=== PATIENT | female | born 1965 | race Caucasian/White ===

== ENCOUNTER → 2017-12-17 09:44 | Outpatient (CLI) | payer OTHER, SELFPAY ==
[2017-12-17 10:25] LABS: AST(SGOT) 22 U/L (15-37); Alanine Aminotransfer ALT/SGPT 41 U/L (13-56); Albumin, Serum 3.5 g/dL (3.2-5.0); Alkaline Phosphatase 66 U/L (45-117); Anion Gap 9 (5-15); BUN 13 mg/dL (7-18); BUN/Creat Ratio 18.5 RATIO (10-20); Calcium,Total 9.9 mg/dL (8.5-10.1); Chloride 101 mmol/L (98-107); Cholesterol 173 mg/dL (200); EST Glomerular Filtration Rate 94 mL/min (>60); Est Glom Filt Rate - Afr Amer 113 mL/min (>60); Globulin 3.6 g/dL (2.2-4.2); Glucose 192 mg/dL (74-106); High Density Lipoprotein 47 mg/dL; Potassium 4.2 mmol/L (3.5-5.1); Protein, Total 7.1 g/dL (6.4-8.2); Sodium Level 138 mmol/L (136-145); Triglycerides 362 mg/dL; Very Low Density Lipoprotein 72 mg/dL (5-40)
[2017-12-17 10:31] LABS: Microalbumin,Random Urine 31.7 mg/L (NO RANGE EST.); Microalbumin:Creatinine Ratio 17.8 mg/g CRE (<30 mg/g CRE)
[2017-12-17 11:14] LABS: Hemoglobin A1c 7.9 % (4.2-6.3)
== END ==
PROVIDERS: Family Provider Family Medicine; PCP Family Medicine; Visit Provider Family Medicine
DX: E11.9 Type 2 diabetes mellitus without complications (principal); I10 Essential (primary) hypertension
CPT/HCPCS: 36415; 80053; 80061; 82043; 82570; 83036

== ENCOUNTER → 2018-02-03 16:51 | Outpatient (CLI) | payer OTHER, SELFPAY ==
--- NOTE | 2018-02-03 17:08 | RAD_ITS ---
STUDY: X-RAY - LUMBAR SPINE REASON FOR EXAM: Female, 52 years old. Lower back pain. TECHNIQUE: 3 view(s) of the lumbar spine were obtained. COMPARISON: June 18, 2013 FINDINGS: Normal lumbar lordosis. There is no substantial scoliosis. There is a normal alignment of the vertebrae. There is multilevel endplate spondylosis of the lumbar vertebrae. There is multi-level degenerative disc disease with multi-level disc space narrowing. There is a stable grade 1 anterior spondylolisthesis of L4 on L5. The soft tissue structures are unremarkable. RAD/Lumbar Spine 2 or 3 Views IMPRESSION: Degenerative changes of the spine, as detailed above. Electronically Signed: Mariah Donohue MD at 8:37 EDT Tel , Service support ,
== END ==
PROVIDERS: Family Provider Family Medicine; PCP Family Medicine; Visit Provider Anesthesiology Pain Medicine
DX: M54.9 Dorsalgia, unspecified (principal)
CPT/HCPCS: 72100

== ENCOUNTER → 2018-02-12 10:16 | Outpatient (CLI) | payer OTHER, SELFPAY ==
--- NOTE | 2018-02-12 10:28 | MRI_ITS ---
STUDY: MRI LUMBAR SPINE WITHOUT CONTRAST REASON FOR EXAM: Female, 52 years old. Low back pain, left leg pain and trouble walking x16 weeks. TECHNIQUE: Standardized fat and water weighted pulse sequences were obtained in the sagittal and axial planes. COMPARISON: None FINDINGS: T11-T12: (Sagittal only). Normal endplates. Normal disc height, hydration and morphology. Normal central canal and bilateral intervertebral neural foramina. T12-L1: (Sagittal only). Normal endplates. Normal disc height, hydration and morphology. Normal central canal and bilateral intervertebral neural foramina. Normal lumbar lordosis. There is no substantial scoliosis. Normal conus medullaris that terminates at the mid T12 vertebral body level. L1-2: Normal endplates. Normal disc height, hydration and morphology. Normal bilateral facet joints. Normal central canal and bilateral lateral recesses. Normal bilateral intervertebral neural foramina. L2-3: Normal endplates. Normal disc height, hydration and morphology. Normal bilateral facet joints. Normal central canal and bilateral lateral recesses. Normal bilateral intervertebral neural foramina. L3-4: Normal endplates. Minimal disc space height narrowing with minimal loss of disc hydration. Normal disc morphology. Normal central canal and bilateral lateral recesses. Normal facet joints. Normal bilateral intervertebral neural foramina. L4-5: Normal endplates. Mild disc space height narrowing. Minimal degenerative anterolisthesis of L4 and L5. Normal central canal. Moderate left degenerative facet arthropathy and mild right degenerative facet arthropathy. Minimal fluid distention of the left facet joint. Normal bilateral lateral recesses. Normal bilateral intervertebral neural foramina. L5-S1: Normal endplates. Normal disc height, hydration and morphology. Normal bilateral facet joints. Normal central canal and bilateral lateral recesses. Normal bilateral intervertebral neural foramina. Normal visualized sacral ala. Normal visualized paraspinous soft tissue structures. MRI/Spine Lumbar (Routine) IMPRESSION: 1. No MRI evidence of lumbar extruded disc fragment or spinal stenosis. 2. Mild L4-L5 disc space height narrowing with minimal degenerative anterolisthesis of L4 on L5, moderate left degenerative facet arthropathy with minimal fluid distention of is facet joint and mild right degenerative facet arthropathy. 3. Minimal L3-L4 disc space height narrowing. Electronically Signed: Hair Esparza MD at 15:34 EDT , Service support ,
== END ==
PROVIDERS: Family Provider Family Medicine; PCP Family Medicine; Visit Provider Anesthesiology Pain Medicine
DX: M54.9 Dorsalgia, unspecified (principal); M79.606 Pain in leg, unspecified
CPT/HCPCS: 72148

== ENCOUNTER → 2018-03-25 08:49 | Outpatient (CLI) | payer OTHER, SELFPAY ==
[2018-03-25 09:33] LABS: Thyroid Stim Hormone (TSH) 4.99 uIU/mL (0.358-3.74)
[2018-03-25 09:39] LABS: Hemoglobin A1c 6.9 % (4.2-6.3)
== END ==
PROVIDERS: Family Provider Family Medicine; PCP Family Medicine; Visit Provider Physician Assistant
DX: E11.9 Type 2 diabetes mellitus without complications (principal); E03.9 Hypothyroidism, unspecified
CPT/HCPCS: 83036; 84443

== ENCOUNTER → 2018-09-10 16:37 | Outpatient (CLI) | payer OTHER, SELFPAY ==
[2018-09-09 17:37] LABS: BUN 15 mg/dL (7-18); Creatinine, Serum 0.85 mg/dL (0.55-1.02); EST Glomerular Filtration Rate 75 mL/min (>60); Est Glom Filt Rate - Afr Amer 91 mL/min (>60)
--- NOTE | 2018-09-10 16:46 | MRI_ITS ---
STUDY: MRI BRAIN WITH AND WITHOUT CONTRAST REASON FOR EXAM: Female, 52 years old. Dermoid cyst. TECHNIQUE: Standardized multiplanar fat and water weighted pulse sequences were obtained. Gadavist 10 IV was administered for the contrast portion of the examination. COMPARISON: 02/08/2017. CT 06/05/2016. FINDINGS: There is a 3.8 x 1.7 x 2.3 cm lesion in the left paramedian posterior fossa with uniform fat signal intensity. The lesion is somewhat lobulated. Primary differential considerations include quadrigeminal cistern lipoma (congenital etiology) versus intracranial dermoid. The lesion appears minimally increased compared to 2017. Normal size of the ventricles and extra-axial spaces for the patient's age. Normal white matter tracts of the supratentorial brain. Normal bilateral basal ganglia. Normal thalami. There is no extra-axial fluid accumulation. Normal flow voids within the major intracranial circulation suggesting patency by spin echo criteria. There is no enhancing intra-axial or extra-axial abnormality. Normal sella turcica, pituitary gland, infundibular stalk, optic chiasm and hypothalamus. Normal midbrain, aparna and medulla. Normal cerebellum. Normal bilateral temporal bones. Normal bilateral internal auditory canals. No demonstrated orbital abnormality, within the constraints of a routine brain study. There is trace mucosal thickening in the left maxillary sinus. Normal calvarium and skull base. Normal visualized soft tissue structures. Normal visualized upper cervical spine. MRI/Brain W/WO Contrast IMPRESSION: 1. 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 This lesion appears minimally increased compared to 2017. Electronically Signed: Tammy Silva MD at 21:42 EST Tel , Service support ,
== END ==
PROVIDERS: Family Provider Family Medicine; PCP Family Medicine
DX: D33.2 Benign neoplasm of brain, unspecified (principal)
CPT/HCPCS: 36415; 70553; 82565; 84520; A9585

== ENCOUNTER → 2018-09-15 09:34 | Outpatient (CLI) | payer OTHER, SELFPAY ==
[2018-09-15 10:09] LABS: Hemoglobin A1c 8.5 % (4.2-6.3)
[2018-09-15 10:32] LABS: Thyroid Stim Hormone (TSH) 0.42 uIU/mL (0.358-3.74)
== END ==
PROVIDERS: Family Provider Family Medicine; PCP Family Medicine; Visit Provider Family Medicine
DX: E03.9 Hypothyroidism, unspecified (principal); E11.9 Type 2 diabetes mellitus without complications
CPT/HCPCS: 36415; 83036; 84443

== ENCOUNTER → 2019-03-09 | Outpatient (CLI) | payer OTHER, SELFPAY ==
[2019-03-09 15:39] VITALS: BMI 38.2
== END | disposition home or self-care (01) ==
LOC: LABSPEC 16:47
PROVIDERS: Family Provider Family Medicine; PCP Family Medicine; Referring Provider Nurse Practitioner Women's Health; Visit Provider Nurse Practitioner Women's Health
DX: N89.8 Other specified noninflammatory disorders of vagina (principal)
CPT/HCPCS: 87070; 87205

== ENCOUNTER → 2019-04-22 17:23 | Outpatient (CLI) | payer OTHER, SELFPAY ==
[2019-03-09 15:39] VITALS: BMI 38.2
--- NOTE | 2019-04-22 17:30 | RAD_ITS ---
STUDY: X-RAY - RIGHT KNEE REASON FOR EXAM: Female, 53 years old. Pain TECHNIQUE: 4 view(s) of the knee. COMPARISON: None. FINDINGS: There is no evidence of fracture or dislocation. Moderate osteoarthritic degenerative changes are present in the medial compartment and mild osteoarthritic degenerative changes are present in the lateral and patellofemoral compartments. There are no radiodense foreign bodies. RAD/Knee 4 or More Views IMPRESSION: No fracture or dislocation. Tricompartmental degenerative changes, greatest in the medial compartment. Electronically Signed: Armando Gleason, at 21:44 EDT Tel , Service support ,
--- NOTE | 2019-04-22 17:50 | RAD_ITS ---
STUDY: X-RAY - LEFT KNEE REASON FOR EXAM: Female, 53 years old. Pain TECHNIQUE: 4 view(s) of the knee. COMPARISON: None. FINDINGS: There is no evidence of fracture or dislocation. Mild tricompartmental osteoarthritic degenerative changes are present, greatest in the medial compartment. There are no radiodense foreign bodies. RAD/Knee 4 or More Views IMPRESSION: No fracture or dislocation. Mild tricompartmental osteoarthritic degenerative changes, greatest in the medial compartment. Electronically Signed: Armando Gleason, at 21:46 EDT Tel , Service support ,
== END ==
PROVIDERS: Family Provider Family Medicine; PCP Family Medicine; Referring Provider Family Medicine; Visit Provider Family Medicine
DX: M25.561 Pain in right knee (principal); M25.562 Pain in left knee
CPT/HCPCS: 73564

== ENCOUNTER 2019-06-30 16:30 | Outpatient (RCR) | payer OTHER, SELFPAY ==
[2019-05-19 10:17] VITALS: BMI 38.2
--- NOTE | 2019-05-27 16:54 | HP.PTEVAL_ITS ---
Patient's Visit Information CHARLENE GARZA is a 53 year old F referred to Physical Therapy by Jennifer Maradiaga DO with a diagnosis of R knee pain, medial OA. Date of Evaluation: 05/27/19 Physical Therapist: Shyam Oakes, DPT, OCS, CSCS - Visit Plan Frequency: 1x/Week Duration: 4-6 Weeks Plan: weekly to every other week x 2-4 visits to teach adn progress LE ROM, stretching and strengthening ex to manage OA. Next: check stretches(piri, ITB, quad adn ROM) adn teach SLR, bridge, clamshell, heel raise for HEP adn d/c or f/u one more time. - Subjective Findings: R knee hurting for a year or so but worsening possibly stepping up a stair. Pain is front of R knee. Intermittent most of time. Worse with getting started after sitting. Comfortable at rest. Walking longer distances is painful. Sleeps well. 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 Stiff. Basic aDLs can be worse if she uses it alot or gets down on knees. Enjoys gardening and was limited this year especiallya s summer went on. Worse later in the year. Regular doctor sent x ray and to [facility] - Pain R knee pain Pain Intensity (Out of 10): 2 Pain Intensity Range: 0, 4 - Objective Walks with slight R antalgia, steps reciprocal with one rail but obviously weaker on R eccentrically. Tender to touch at R medial joint line minimally. Hip AROM WFL, piriformis tight , strength is 3+ abd and ext adn 4- flexion and adduction without pain. Knee AROM 0-105 B, no pain throughout movment either leg. tightness present in quad and ITB B. ankle AROM WFL but 0 Df B and tight in gastroc. Strength knee ext 4- B and flexion 4- B, has some pain R HSC and ext in medial knee. Sensation WNL to gross light touch in B LE. - anterior drawer, - scour, - bounce home - Goals Goal 1:: Patient feel pain in medial R knee is 75% improved to 1/10 at most adn manageable Goal Time Frame: 4-6 Weeks Goal 2:: Pt I in appropriate HEP to help manage symptoms Goal Time Frame: 4-6 Weeks - Rehabilitation Potential Physical Therapy Diagnosis: R medial OA. Rehabilitation Potential: Fair - Anticipated Interventions Patient/Client Instruction: Educate patient on: Condition, Plan of Care For the Purpose of:: To decrease pain, To increase ROM, To improve nutrient d elivery to tissue, To increase tolerance to activity/condition/position, To improve ability of physical actions for home/community/work/leisure Therapeutic Exercise to Include: Strength training, Flexibilty training, Passive ROM, Active ROM Comment: activitiy mdoification For the Purpose of:: To decrease pain, To increase ROM, To improve muscle performance and motor function, To increase tolerance to activity/condition/position, To improve ability of physical actions for home/community/work/leisure, To improve gait and locomotor functions Thank you for the opportunity to evaluate your patient. For Medicare and Medicare HMO plans, please review the plan of care and approve it. It will need to be FAXED BACK to us at [phone] for Medicare purposes. For Medicare only, by signing this I certify the plan of care. Please let me know if there are questions or concerns regarding this plan of care. Physician Signature: Date:
--- NOTE | 2019-06-30 17:09 | HP.PTREVAL ---
Jennifer Maradiaga, DO, It has been my pleasure to treat CHARLENE GARZA over the last 3 visits for R knee pain, medial OA. Please see the progress note below for an update on the physical therapy plan of care! Subjective: Not bad lately. Slight pain lately but nothing like it was 3/10 much of time. Worse after Thanksgiving meal. Exercises are not bad and getting them in 3x/week. No f/u needed with doctor but got brace adn will use it and call back in 6 weeks. Doing 10reps of SLR 3x/day and stretches every toher day. Objective/Function: Full aROM B knees without pain today, not limping. Strength is 4/5 without pain in ext or flexion. Brace fitting well and helping today with pain and ambulationa t setting 0/0 Plan Plan: f/u one month to progress to dips, squats, RDL and d/c. Pt may cancel if doing great. Goals Goal 1:: Patient feel pain in medial R knee is 75% improved to 1/10 at most adn manageable Goal Time Frame: 4-6 Weeks Goal Progress: Goal Met Goal 2:: Pt I in appropriate HEP to help manage symptoms Goal Time Frame: 4-6 Weeks Goal Progress: Goal Met Anticipated Interventions Patient/Client Instruction: Educate patient on: Condition, Plan of Care For the Purpose of:: To decrease pain, To increase ROM, To improve nutrient delivery to tissue, To increase tolerance to activity/condition/position, To improve ability of physical actions for home/community/work/leisure Therapeutic Exercise to Include: Strength training, Flexibilty training, Passive ROM, Active ROM Comment: activitiy mdoification For the Purpose of:: To decrease pain, To increase ROM, To improve muscle performance and motor function, To increase tolerance to activity/condition/position, To improve ability of physical actions for home/community/work/leisure, To improve gait and locomotor functions Please do not hesitate to contact me at [phone] by phone or if you have questions or concerns regarding this new plan of care! Sincerely, Shyam Oakes, DPT, OCS, CSCS
--- NOTE | 2019-09-04 09:19 | HP.PTDCNRP_ITS ---
HP - Discharge Summary (1) - Patient Information CHARLENE GARZA was seen in my office for initial evaluation on 05/27/19. The following Plan of Care was established for this patient: Initial Frequency: 1x/Week Initial Duration: 4-6 Weeks - Anticipated Interventions Patient/Client Instruction: Educate patient on: Condition, Plan of Care For the Purpose of:: To decrease pain, To increase ROM, To improve nutrient del xochitl to tissue, To increase tolerance to activity/condition/position, To improve ability of physical actions for home/community/work/leisure Therapeutic Exercise to Include: Strength training, Flexibilty training, Passive ROM, Active ROM For the Purpose of:: To decrease pain, To increase ROM, To improve muscle performance and motor function, To increase tolerance to activity/condition/position, To improve ability of physical actions for home/community/work/leisure, To improve gait and locomotor functions This patient was last seen in our office 06/30/19. Pertinent comments regarding their Physical therapy will appear below: Pt seen 3 visits of POC adn was 75% better. She was to f/u in one month but neglected to schedule or attend. At this point, it has been nearly two months and I will discontinue due to nonattendance. At this point I will be discontinuing this patient from physical therapy. I would be happy to see this patient again in the future if found appropriate by the physician. Thank you! Shyam Oakes, DPT, OCS, CSCS
== END 2019-06-30 19:00 | disposition home or self-care (01) ==
LOC: PT 16:30
PROVIDERS: Family Provider Family Medicine; PCP Family Medicine; Referring Provider Orthopaedic Surgery; Visit Provider Orthopaedic Surgery
DX: M17.11 Unilateral primary osteoarthritis, right knee (principal)
CPT/HCPCS: 97110; 97162; 97530

== ENCOUNTER → 2019-12-12 07:10 | Outpatient (CLI) | payer OTHER, SELFPAY ==
[2019-05-19 10:17] VITALS: BMI 38.2
[2019-12-12 07:44] LABS: ALB/GLOB Ratio 1.1 RATIO (0.9-2.4); AST(SGOT) 17 U/L (15-37); Alanine Aminotransfer ALT/SGPT 34 U/L (13-56); Albumin, Serum 3.9 g/dL (3.2-5.0); Alkaline Phosphatase 45 U/L (45-117); Anion Gap 6 (5-15); BUN 13 mg/dL (7-18); BUN/Creat Ratio 15.2 RATIO (10-20); Calcium,Total 9.8 mg/dL (8.5-10.1); Chloride 100 mmol/L (98-107); Cholesterol 180 mg/dL (200); Creatinine, Serum 0.86 mg/dL (0.55-1.02); EST Glomerular Filtration Rate 74 mL/min (>60); Est Glom Filt Rate - Afr Amer 90 mL/min (>60); Globulin 3.5 g/dL (2.2-4.2); Glucose 180 mg/dL (74-106); High Density Lipoprotein 50 mg/dL; Protein, Total 7.4 g/dL (6.4-8.2); Sodium Level 136 mmol/L (136-145); Triglycerides 228 mg/dL; Very Low Density Lipoprotein 46 mg/dL (5-40)
[2019-12-12 07:54] LABS: Microalbumin,Random Urine 32.7 mg/L (NO RANGE EST.); Microalbumin:Creatinine Ratio 18.1 mg/g CRE (<30 mg/g CRE)
== END ==
PROVIDERS: PCP Family Medicine; Visit Provider Family Medicine
DX: E11.9 Type 2 diabetes mellitus without complications (principal); E03.9 Hypothyroidism, unspecified
CPT/HCPCS: 36415; 80053; 80061; 82043; 82570; 83036

== ENCOUNTER → 2020-03-11 | Outpatient (CLI) | payer OTHER, SELFPAY ==
[2020-03-11 15:28] VITALS: BMI 38.2
== END | disposition home or self-care (01) ==
PROVIDERS: PCP Family Medicine; Referring Provider Nurse Practitioner Women's Health; Visit Provider Nurse Practitioner Women's Health
DX: N94.9 Unspecified condition associated with female genital organs and menstrual cycle (principal); R30.0 Dysuria
CPT/HCPCS: 87070; 87086; 87088; 87205

== ENCOUNTER → 2020-04-16 09:05 | Outpatient (CLI) | payer OTHER, SELFPAY ==
[2020-03-11 15:28] VITALS: BMI 38.2
--- NOTE | 2020-04-16 09:06 | BI_ITS ---
MAMMOGRAPHY - BILATERAL SCREENING REASON FOR EXAM: Female, 54 years old. Routine annual screening examination. PERTINENT HISTORY: Non-contributory. TECHNIQUE: Digital bilateral breast levar (3D mammographic acquisition) in the CC and MLO projections. 2-D mediolateral oblique (MLO) and craniocaudad (CC) views of both breasts were obtained. CAD: Full Field Digital Mammography with Computer Added Detection was performed. COMPARISON: Comparison is made with prior study dated 03/19/2016. FINDINGS: Breast Composition: The breasts are almost entirely fatty. There are no dominant masses or suspicious calcifications. Stable small benign-appearing bilateral axillary lymph nodes. No other significant abnormalities are identified. There has been no significant change since the prior study. BI/SCREEN MAMM (CAD) W/LEVAR BILAT IMPRESSION: Stable bilateral screening mammogram. Yearly follow-up mammogram recommended. (A) ASSESSMENT CATEGORY: BIRADS Category 2: Benign. A letter regarding these results will be sent to the patient by the facility within 30 days. Approximately 10% of breast cancers are not detected by mammography. A normal mammogram should not delay biopsy of a clinically suspicious abnormality. [id number] Electronically Signed: Frederick Sanford, at 8:44 EDT , Service support ,
== END ==
PROVIDERS: PCP Family Medicine; Referring Provider Family Medicine; Visit Provider Family Medicine
DX: Z12.31 Encounter for screening mammogram for malignant neoplasm of breast (principal)
CPT/HCPCS: 77063; 77067

== ENCOUNTER → 2020-07-26 09:32 | Outpatient (CLI) | payer OTHER, SELFPAY ==
[2020-03-11 15:28] VITALS: BMI 38.2
[2020-07-26 09:54] LABS: Hemoglobin A1c 6.4 % (3.8-5.6)
[2020-07-26 10:11] LABS: Anion Gap 5 (5-15); BUN 11 mg/dL (7-18); Calcium,Total 10.1 mg/dL (8.5-10.1); Chloride 104 mmol/L (98-107); Creatinine, Serum 0.61 mg/dL (0.55-1.02); EST Glomerular Filtration Rate 109 mL/min (>60); Est Glom Filt Rate - Afr Amer 132 mL/min (>60); Glucose 172 mg/dL (74-106); Sodium Level 137 mmol/L (136-145); Thyroid Stim Hormone (TSH) 0.07 uIU/mL (0.358-3.74)
== END ==
PROVIDERS: PCP Family Medicine; Visit Provider Family Medicine
DX: E11.9 Type 2 diabetes mellitus without complications (principal); E03.9 Hypothyroidism, unspecified
CPT/HCPCS: 36415; 80048; 83036; 84443

== ENCOUNTER → 2021-03-17 | Outpatient (CLI) | payer OTHER, SELFPAY ==
[2021-03-17 18:01] LABS: Mucous, Urine 0 SEEN /hpf (<or=2+)
[2021-03-17 18:10] LABS: Color, Urine Yellow (Yellow); Glucose, Dipstick Normal (Normal); Ketone-Dipstick Negative (Negative); Leukocyte Esterase-Dipstick 500 /ul (Negative); Nitrite-Dipstick Positive (Negative); Occult Blood-Urine 250 /ul (Negative); Protein-Dipstick 30 mg/dl (Negative); Urine Bilirubin Dipstick Negative (Negative); Urine Clarity Cloudy (Clear); Urine Urobilinogen Normal (Normal)
[2021-03-17 18:22] LABS: Amorphous Sediment 1+ PHOS; Bacteria 1+ /hpf (None Seen); Red Blood Cells-Urine 25-50 SEEN /hpf (0-5); Squamous Epithelial Cells - UA 0-5 SEEN /hpf (5-10); White Blood Cells >100 SEEN /hpf (0-5)
== END | disposition home or self-care (01) ==
PROVIDERS: PCP Family Medicine; Referring Provider Physician Assistant Surgical; Visit Provider Physician Assistant Surgical
DX: N39.0 Urinary tract infection, site not specified (principal)
CPT/HCPCS: 81001; 87077; 87086; 87088; 87186

== ENCOUNTER → 2021-04-30 09:26 | Outpatient (CLI) | payer OTHER, SELFPAY ==
[2021-04-30 10:03] LABS: Hemoglobin A1c 7.2 % (3.8-5.6)
[2021-04-30 10:08] LABS: Thyroid Stim Hormone (TSH) 3.19 uIU/mL (0.358-3.74)
[2021-04-30 10:15] LABS: Microalbumin,Random Urine 9.1 mg/L (NO RANGE EST.); Microalbumin:Creatinine Ratio 6.6 mg/g CRE (<30 mg/g CRE)
== END ==
PROVIDERS: PCP Family Medicine; Visit Provider Family Medicine
DX: D33.2 Benign neoplasm of brain, unspecified (principal); I10 Essential (primary) hypertension; E03.9 Hypothyroidism, unspecified; E11.9 Type 2 diabetes mellitus without complications
CPT/HCPCS: 82043; 82570; 83036; 84443

== ENCOUNTER → 2021-05-30 | Outpatient (CLI) | payer OTHER, SELFPAY ==
[2021-06-02 15:33] LABS: HSV Culture Without Typing Positive (.)
== END | disposition home or self-care (01) ==
PROVIDERS: PCP Family Medicine; Visit Provider Nurse Practitioner Women's Health
DX: N90.89 Other specified noninflammatory disorders of vulva and perineum (principal)
CPT/HCPCS: 87255

== ENCOUNTER 2021-07-17 15:03 | Outpatient (CLI) | payer OTHER, SELFPAY ==
[2021-07-17 15:24] VITALS: BP 126/71; PULSE 98; RESP 16; TEMP 36.8; O2SAT 99; BMI 32.5
[2021-07-17] MEDS: 0.9% Saline Lock 10 ML Syringe IV (15:34)
[2021-07-17 16:05] VITALS: BP 116/69; PULSE 84; RESP 16; TEMP 36.8; O2SAT 100
[2021-07-17 16:56] VITALS: BP 115/65; PULSE 84; RESP 16; TEMP 36.8; O2SAT 100
== END 2021-07-17 17:07 | disposition home or self-care (01) ==
LOC: MS3OUT 15:03 → MS3 15:04
PROVIDERS: PCP Family Medicine; Visit Provider Nurse Practitioner Adult Health
DX: Z23 Encounter for immunization (principal); U07.1 COVID-19
CPT/HCPCS: J7050; M0245; Q0245; A4216

== ENCOUNTER 2021-10-23 10:14 | Outpatient (CLI) | payer OTHER, SELFPAY ==
[2021-10-23 10:24] LABS: Mucous, Urine 0 SEEN /hpf (<or=2+)
[2021-10-23 10:43] LABS: Color, Urine Yellow (Yellow); Glucose, Dipstick Normal (Normal); Ketone-Dipstick Negative (Negative); Leukocyte Esterase-Dipstick 500 /ul (Negative); Nitrite-Dipstick Negative (Negative); Occult Blood-Urine 25 /ul (Negative); Protein-Dipstick 30 mg/dl (Negative); Urine Bilirubin Dipstick Negative (Negative); Urine Clarity Sl. Cloudy (Clear); Urine Urobilinogen Normal (Normal)
[2021-10-23 10:46] LABS: Bacteria 1+ /hpf (None Seen); Red Blood Cells-Urine 0-5 SEEN /hpf (0-5); Squamous Epithelial Cells - UA 0-5 SEEN /hpf (5-10); White Blood Cells 25-50 SEEN /hpf (0-5)
== END 2021-10-23 23:59 | disposition home or self-care (01) ==
LOC: LABSPEC 10:16
PROVIDERS: PCP Family Medicine; Visit Provider Physician Assistant Surgical
DX: R30.9 Painful micturition, unspecified (principal)
CPT/HCPCS: 81001; 87086; 87088; 87186

== ENCOUNTER 2021-10-26 18:33 | Emergency (ER) | payer OTHER, SELFPAY ==
[2021-10-26 18:34] VITALS: BP 139/89; PULSE 105; RESP 18; TEMP 36.4; O2SAT 97; BMI 34.0
[2021-10-26 19:02] LABS: Absolute Lymphocyte Count 3.27 X10^3/uL (0.83-4.51); Absolute Neutrophil Count 3.1 X10^3/uL (2.0-7.7); Basophil# 0.06 X10^3/uL; Basophil% 0.9 % (0-1); Eosinophil# 0.11 X10^3/uL; Eosinophils% 1.6 % (0-5); Hematocrit 34.4 % (37-47); Hemoglobin 11.4 g/dL (12.0-15.0); Lymphocyte # 3.27 X10^3/ul (0.83-4.51); Mean Corp Hgb Conc 33.1 g/dL (32-36); Mean Corpuscular Hgb 28.9 pg (27.0-32.0); Mean Corpuscular Volume 87.1 fL (81-99); Mean Platelet Vol. 10.2 fl (6.2-12.0); Monocyte# 0.25 X10^3/uL; Monocyte% 3.7 % (0-10); NRBC Flagged by Analyzer 0 % (0-5); Neutrophil # 3.08 X10^3/uL (2.7-7.7); Neutrophil % 45.2 % (47-70); POSITIVE MORPHOLOGY YES; Platelet Count 145 K/mm3 (150-450); RBC Distribution Width CV 14.3 % (11.6-14.6); RBC Distribution Width SD 45.1 fl (35.1-43.9); Red Blood Count 3.95 M/mm3 (4.2-5.4); White Blood Count 6.8 K/mm3 (4.4-11.0)
[2021-10-26 19:06] LABS: Mucous, Urine 0 SEEN /hpf (<or=2+); Red Blood Cells-Urine 0 SEEN /hpf (0-5)
[2021-10-26 19:06] LABS: Differential Indicated SCAN CRITERIA MET
[2021-10-26 19:07] LABS: Color, Urine Yellow (Yellow); Glucose, Dipstick 50 mg/dl (Normal); Ketone-Dipstick Negative (Negative); Leukocyte Esterase-Dipstick 25 /ul (Negative); Nitrite-Dipstick Negative (Negative); Occult Blood-Urine Negative /ul (Negative); Protein-Dipstick 30 mg/dl (Negative); Urine Clarity Sl. Cloudy (Clear); Urine Urobilinogen 8 mg/dl (Normal)
[2021-10-26 19:11] LABS: Urine Bilirubin Dipstick 1 mg/dL (Negative)
[2021-10-26 19:15] LABS: Anion Gap 10 (5-15); BUN 27 mg/dL (7-18); BUN/Creat Ratio 16.2 RATIO (10-20); Calcium,Total 10.3 mg/dL (8.5-10.1); Chloride 98 mmol/L (98-107); Creatinine, Serum 1.67 mg/dL (0.55-1.02); EST Glomerular Filtration Rate 34 mL/min (>60); Est Glom Filt Rate - Afr Amer 41 mL/min (>60); Estimated Creatinine Clearance 33.25 ml/min; Glucose 232 mg/dL (74-106); Potassium 3.7 mmol/L (3.5-5.1); Sodium Level 134 mmol/L (136-145)
[2021-10-26 19:15] LABS: Bacteria 1+ /hpf (None Seen); Squamous Epithelial Cells - UA 10-25 SEEN /hpf (5-10); White Blood Cells 0-5 SEEN /hpf (0-5)
[2021-10-26 19:16] LABS: Amorphous Sediment 1+ URATE
[2021-10-26 19:48] LABS: Atypical Lymphocyte 1+ %; Differential Comment SCANNED; Reactive Lymphocyte 1+
[2021-10-26 21:07] VITALS: BP 134/62; PULSE 88; RESP 16; TEMP 36.9; O2SAT 98
--- NOTE | 2021-10-26 22:34 | CT_ITS ---
INDICATION: flank pain EXAMINATION: CT ABDOMEN AND PELVIS WITHOUT CONTRAST - CT Abdomen And Pelvis W/O Contrast Injection TECHNIQUE: Helically acquired images were obtained of the abdomen and pelvis without oral or IV contrast. A radiation dose optimization technique was used for this scan. IV Contrast dosage and agent: None. Oral contrast: None. COMPARISON: None. FINDINGS: LOWER CHEST: Lung bases are clear. No cardiomegaly or pericardial effusion. LIVER: Normal size, contour and density. No focal mass. GALLBLADDER AND BILIARY TREE: No calcified gallstones. No gallbladder distension or wall edema. No intra- or extrahepatic biliary ductal dilation. PANCREAS: No focal cystic or solid mass. SPLEEN: Upper limit normal size, 14 cm diameter. Normal size portal and splenic veins ADRENAL GLANDS: No nodules. KIDNEYS, URETERS and BLADDER: Normal renal size and position. No mass. No hydronephrosis. Bladder is unremarkable. PERITONEUM: No ascites or free air. No other fluid collection. BOWEL: Normal appendix identified. No abnormally distended bowel loops or air fluid levels. No wall thickening or mass. Scattered diverticuli seen in the sigmoid colon. No focal inflammatory changes. LYMPH NODES: No enlarged mesenteric or retroperitoneal lymph nodes. VESSELS: Aorta is non-dilated. Scattered abdominal aortic vascular calcifications including at the origin of the right renal artery. REPRODUCTIVE ORGANS: Uterus is absent. Normal appearance bilateral ovaries with note of a 18 mm hypodensity left ovary. ABDOMINAL WALL: No discrete abdominal or pelvic wall hernia. BONES: No lytic or blastic abnormality. No fracture. L4-5 posterior disc bulge and facet arthropathy appears to result in at least mild central canal narrowing. CT/Abdomen/Pelvis without Cont IMPRESSION: No acute intra-abdominal pathology. No genitourinary stone. Upper limit normal size spleen measuring 14 cm in length. Scattered diverticuli sigmoid colon without diverticulosis. Abdominal aortic atherosclerosis, mild. Degenerative changes lumbar spine as above. Electronically Signed: Jorge Mathias DO at 23:41 EDT ,
[2021-10-26] MEDS: Ondansetron 4 MG/2 ML Vial IV (22:49)
[2021-10-26] MEDS: 0.9% Normal Saline 1,000 ML 999 ML IV (22:49)
[2021-10-26] MEDS: Morphine 4 MG/ML Syringe IV (22:49)
[2021-10-26] MEDS: Ceftriaxone 1 GM/50 ML BAG IV (23:16)
--- NOTE | 2021-10-26 23:18 | ED.VIS.FEGU ---
HPI HPI - Female History of Present Illness Chief Complaint: Flank Pain Narrative Narrative: 56-year-old female diagnosed [facility]. She states that she was placed on Macrobid. The urine culture was done but the sensitivities were not back. She is placed on Macrobid initially. She states she is feeling worse. She has the chills and she is nauseous but she has not vomited. She does not have any GI complaints. She states that today she was walking and felt like she had a hot flash. She has not had a fever. She does have a mild headache. She feels generally unwell she does complain that her back hurts. This is both sides. PFSH PFS Medical History Chronic neck and back pain Diabetes Hypertension Thyroid disease Home Medications levothyroxine 137 mcg PO DAILY 08/04/13 [History Last Taken 08/04/13] losartan-hydrochlorothiazide 1 tab PO DAILY 08/04/13 [History Last Taken 08/04/13] atorvastatin 10 mg tablet 10 mg PO DAILY 05/30/21 [History Last Taken Unknown] sitagliptin 50 mg-metformin 1,000 mg tablet 1 tab PO BIDCM 05/30/21 [History Last Taken Unknown] valacyclovir 1 gram tablet 1,000 mg PO DAILY #90 tab 08/15/21 [Rx Last Taken Unknown] nitrofurantoin monohydrate/macrocrystals 100 mg capsule 1 cap PO Q12H 7 Days #14 cap 10/23/21 [Rx Last Taken Unknown] Allergy/AdvReac Type Severity Reaction Status Date / Time cheese Allergy Swelling Verified 10/26/21 18:35 Family History Other Diabetes Hypertension Surgical History History of total vaginal hysterectomy (TVH) Social History Smoking Status: Never smoker alcohol intake: never substance use type: does not use caffeine: Yes what type of physical activity do you participate in: walking frequency: 1-2 times per week seatbelt use: always do you feel safe at home: Yes ROS ROS ED Constitutional Constitutional ED: Reports chills; Denies fever(s) Eyes Eyes: Denies blurry vision or diplopia ENT ENT ED: Denies rhinorrhea or sore throat Cardiovascular Cardiovascular: Denies chest pain or palpitations Respiratory/Chest Respiratory/Chest: Denies cough or dyspnea Gastrointestinal Gastrointestinal: Reports nausea; Denies abdominal pain, constipation, diarrhea or vomiting Genitourinary Genitourinary ED: Reports dysuria Musculoskeletal Musculoskeletal: Reports other Details: Bilateral back pain. Integumentary Denies rash Neurologic Neurologic: Denies headache(s) or paresthesias Psychiatric Psychiatric: Denies anxiety Endocrine Endocrinology: Denies polydipsia or polyuria EXAM Physical Exam Const Vital Signs: 10/26/21 18:34 10/26/21 21:07 Temperature 97.5 F L 98.4 F Temperature Source Temporal Temporal Pulse Rate 105 H 88 Respiratory Rate 18 16 Blood Pressure 139/89 H 134/62 H Blood Pressure Mean 105 86 Pulse Ox 97 98 Oxygen Delivery Method Room Air Room Air Positive well nourished General Appearance ED: NAD; Negative for pallor HEENT Reports moist mucous membranes Negative for trauma Eyes PERRL and EOMs intact bilaterally Resp normal respiratory effort and clear to auscultation bilaterally Cardio regular rate and regular rhythm Back/Spine General Back: CVA tenderness right Extremity normal to inspection; Negative for full ROM Neuro oriented x3 Sensorium / Orientation: alert Psych mental status grossly normal Skin no rashes or lesions noted and no wounds General Skin Exam: Negative for jaundice or pallor MDM MDM MDM Narrative Medical decision making narrative: Patient presenting with urinary symptoms. She states that she has no history of kidney stone. She was placed on Macrobid for a UTI and is apparently getting worse after 24 hours. She is nauseous and not eating well. She felt like she got a hot flash today and chills. I obtained blood work and her CBC shows no leukocytosis. Creatinine is elevated at 1.67 and she was given 2 L of IV fluids. I gave her Rocephin as well since he has history of UTI there was concern for failed outpatient therapy. Patient does have some vague CVA tenderness but she also complains of bilateral tenderness to palpation. CT of the abdomen pelvis was performed to rule out possibility of kidney stone. CT scan does not show any kidney stones or hydronephrosis. No perinephric stranding. The radiologist does note that there is L4-5 posterior discbulge and facet arthropathy appears to result in at least mild central canal narrowing which could explain her pain bilaterally. Her urinalysis is slightly contaminated but essentially normal. Reviewed the urine culture and sensitivities in her urine culture did show sensitivity to Macrobid. She states that she is getting nausea with that and I offered to change her medications but she states she will just keep using the Macrobid because she only has a couple of days of it. I will prescribe her Zofran. She requests Diflucan in case she gets a yeast infection from being on antibiotics. This was provided. Patient discharged home in stable condition. Impression: 1. Back pain 2. Nausea 3. Acute kidney injury 4. History of UTI Lab Data Labs: Laboratory Results - last 24 hr 10/26/21 10/26/21 10/26/21 18:55 18:55 Unknown WBC 6.8 RBC 3.95 L Hgb 11.4 L Hct 34.4 L MCV 87.1 MCH 28.9 MCHC 33.1 RDW Std Deviation 45.1 H RDW Coeff of Avi 14.3 Plt Count 145 L MPV 10.2 Immature Gran % (Auto) 0.600 Neut % (Auto) 45.2 L Lymph % (Auto) 48.0 H Coleman % (Auto) 3.7 Eos % (Auto) 1.6 Baso % (Auto) 0.9 Absolute Neuts (auto) 3.1 Absolute Lymphs (auto) 3.27 Nucleated RBC % 0 Differential Comment SCANNED Atypical Lymphocytes 1+ Reactive Lymphocytes 1+ Sodium 134 L Potassium 3.7 Chloride 98 Carbon Dioxide 26.0 Anion Gap 10 BUN 27 H Creatinine 1.67 H Estim Creat Clear Calc 33.25 Est GFR (MDRD) Af Amer 41 L Est GFR (MDRD) Non-Af 34 L BUN/Creatinine Ratio 16.2 Glucose 232 H Calcium 10.3 H Urine Color Yellow Urine Clarity Sl. Cloudy Urine pH 5.0 Ur Specific Widen 1.010 Urine Protein 30 H Urine Glucose (UA) 50 H Urine Ketones Negative Urine Occult Blood Negative Urine Nitrite Negative Urine Bilirubin 1 H Urine Urobilinogen 8 H Ur Leukocyte Esterase 25 H Urine RBC 0 SEEN Urine WBC 0-5 SEEN Ur Squamous Epith Cells 10-25 SEEN Amorphous Sediment 1+ URATE Urine Bacteria 1+ Urine Mucus 0 SEEN Radiography Diagnostic Testing: Clinical Impression(s) from Imaging Studies Abdomen/Pelvis CT 10/26/21 22:34 IMPRESSION: No acute intra-abdominal pathology. No genitourinary stone. Upper limit normal size spleen measuring 14 cm in length. Scattered diverticuli sigmoid colon without diverticulosis. Abdominal aortic atherosclerosis, mild. Degenerative changes lumbar spine as above. Electronically Signed: Jorge Mathias DO at 23:41 EDT , Discharge Plan Triage Chief Complaint: Flank Pain ED Provider: Juan Jose Gerber Dx/Rx/DC Orders Prescriptions: No Action atorvastatin [Lipitor] 10 mg tablet 10 mg PO DAILY RF: 0 nitrofurantoin monohyd/m-cryst 100 mg capsule 1 cap PO Q12H 7 Days Qty: 14 RF: 0 levothyroxine 137 MCG tablet 137 mcg PO DAILY RF: 0 losartan-hydrochlorothiazide 1 TAB tablet 1 tab PO DAILY RF: 0 sitagliptin-metformin 50-1,000 mg tablet 1 tab PO BIDCM RF: 0 valacyclovir 1 gram tablet 1,000 mg PO DAILY Qty: 90 RF: 3 Primary Care Provider: Ethan Quesada
== END 2021-10-27 00:20 | disposition home or self-care (01) ==
PROVIDERS: Emergency Provider Student in an Organized Health Care Education/Training Program; PCP Family Medicine; Visit Provider Student in an Organized Health Care Education/Training Program
DX: M54.9 Dorsalgia, unspecified (principal); N17.9 Acute kidney failure, unspecified; R11.0 Nausea; I10 Essential (primary) hypertension; Z79.899 Other long term (current) drug therapy
CPT/HCPCS: 74176; 80048; 81001; 85025; 96365; 96375; 99282; J7030; A4216; J2405

== ENCOUNTER 2022-02-21 07:36 | Outpatient (CLI) | payer OTHER, SELFPAY ==
[2022-02-23 22:07] LABS: Chlamydia By Nucleic Acid AMP Negative (Negative)
[2022-02-23 22:41] LABS: Gonococcus By Nucleic Acid AMP Negative (Negative)
== END 2022-02-21 23:59 | disposition home or self-care (01) ==
LOC: LABSPEC 02-22 07:37
PROVIDERS: PCP Family Medicine; Visit Provider Nurse Practitioner Women's Health
DX: N76.0 Acute vaginitis (principal); Z11.3 Encounter for screening for infections with a predominantly sexual mode of transmission
CPT/HCPCS: 87070; 87205; 87491; 87591

== ENCOUNTER → 2022-03-21 | Outpatient (CLI) | payer OTHER, SELFPAY ==
--- NOTE | 2022-03-21 12:00 | VUL_PTH ---
PATIENT: CHARLENE GARZA LOC: [facility] U#:[id number] AGE/SX: 56/F ROOM: RE03/21/[address]: Dr. Renee Gannon DO : 1965 BED: DIS: 03/21/2022 SPEC #: [id number] RECD: 03/21/22 13:29 STATUS: QUINCY WICKTati #: [id number] LEO: 03/21/22 12:[address]: Renee Gannon DEPT: SURGICAL PATHOLOGY RECD BY: Padmaja Larson ENTERED: 03/22/22 08:11 SP TYPE: VULVA BX OTHR DR: Dr. Ethan Quesada MD Tissues: Vulva, NOS Procedures: Surgery Specimen Level IV HEADER OPERATION: Vulvar biopsy PRE-OP DIAGNOSIS: Vulvar lesion TISSUE SUBMITTED: Vulvar lesion MICROSCOPIC DIAGNOSIS Vulvar lesion, biopsy: Condyloma acuminatum. AM:sal 03/23/2022 MICROSCOPIC DESCRIPTION Slides are reviewed. GROSS DESCRIPTION Received is one container labeled with the patient's name and not further designated. The specimen consists of one irregular fragment of hills-white skin measuring 0.3 x 0.2 x 0.1 cm. The specimen is totally submitted in one cassette. / SJ:rg 03/22/2022 TC:5 CPT: 61852
== END | disposition home or self-care (01) ==
LOC: LABSPEC 14:07
PROVIDERS: PCP Family Medicine; Referring Provider Obstetrics & Gynecology; Visit Provider Obstetrics & Gynecology
DX: A63.0 Anogenital (venereal) warts (principal)
CPT/HCPCS: 88305

== ENCOUNTER → 2022-04-04 | Outpatient (CLI) | payer OTHER, SELFPAY ==
[2022-04-04 14:52] LABS: Hemoglobin A1c 8.1 % (3.8-5.6)
[2022-04-04 15:06] LABS: Thyroid Stim Hormone (TSH) 0.62 uIU/mL (0.358-3.74)
[2022-04-04 15:44] LABS: Microalbumin,Random Urine 24.1 mg/L (NO RANGE EST.); Microalbumin:Creatinine Ratio 32.5 mg/g CRE (<30 mg/g CRE)
== END | disposition home or self-care (01) ==
LOC: LAB 14:15
PROVIDERS: PCP Family Medicine; Visit Provider Family Medicine
DX: I10 Essential (primary) hypertension (principal); E11.9 Type 2 diabetes mellitus without complications; E03.9 Hypothyroidism, unspecified
CPT/HCPCS: 82043; 82570; 83036; 84443

== ENCOUNTER → 2022-04-11 | Outpatient (CLI) | payer OTHER, SELFPAY ==
--- NOTE | 2022-04-11 15:30 | BI_ITS ---
MAMMOGRAPHY - BILATERAL SCREENING REASON FOR EXAM: Female, 56 years old. Routine annual screening examination. PERTINENT HISTORY: Non-contributory. TECHNIQUE: Digital bilateral breast levar (3D mammographic acquisition) in the CC and MLO projections. 2-D mediolateral oblique (MLO) and craniocaudad (CC) views of both breasts were obtained. CAD: Full Field Digital Mammography with Computer Added Detection was performed. COMPARISON: Comparison is made with prior study 04/16/2020 and 03/19/2016. FINDINGS: Breast Composition: The breasts are almost entirely fatty. There are no dominant masses or suspicious calcifications. Stable small benign-appearing bilateral axillary lymph nodes. No other significant abnormalities are identified. There has been no significant change since the prior study. BI/SCRN MAMM (CAD)W/LEVAR BILAT IMPRESSION: Stable bilateral screening mammogram. Yearly follow-up mammogram recommended. (A) ASSESSMENT CATEGORY: BIRADS Category 2: Benign. A letter regarding these results will be sent to the patient by the facility within 30 days. Approximately 10% of breast cancers are not detected by mammography. A normal mammogram should not delay biopsy of a clinically suspicious abnormality. [id number] Electronically Signed: Frederick Sanford MD at 8:02 EDT ,
== END | disposition home or self-care (01) ==
PROVIDERS: PCP Family Medicine; Referring Provider Nurse Practitioner Women's Health; Visit Provider Nurse Practitioner Women's Health
DX: Z12.31 Encounter for screening mammogram for malignant neoplasm of breast (principal)
CPT/HCPCS: 77063; 77067

== ENCOUNTER → 2022-05-01 | Outpatient (CLI) | payer OTHER, SELFPAY ==
--- NOTE | 2022-05-01 17:04 | MRI_ITS ---
STUDY: MRI BRAIN WITH AND WITHOUT CONTRAST REASON FOR EXAM: Female, 56 years old. INTRACRANIAL DERMOID [id number] TECHNIQUE: Standardized multiplanar fat and water weighted pulse sequences were obtained. 17ml Clriscan via IV was administered for the contrast portion of the examination. COMPARISON: 02/08/2017 MRI brain. FINDINGS: No appreciable change in size or configuration of the fatty signal nonenhancing mass along the upper aspect of the medial left cerebellar hemisphere, measuring approximately 2.1 x 3.7 x 1.7 cm TRV X AP X CC. No enhancement. As before of the lesion shows low signal on GRE, contains some calcifications, and otherwise follows signal of fat. No hemorrhage, other mass, or infarct. The remainder the brain is normal contour and signal. No hydrocephalus. Calvarium and extra cranial soft tissue structures unremarkable. 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 Electronically Signed: Jacoby Suazo MD at 1:07 EDT ,
== END | disposition home or self-care (01) ==
LOC: MRI 17:00
PROVIDERS: PCP Family Medicine; Visit Provider Family Medicine
DX: D33.2 Benign neoplasm of brain, unspecified (principal)
CPT/HCPCS: 70553; A9575

== ENCOUNTER → 2022-05-24 | Outpatient (CLI) | payer OTHER, SELFPAY | END | disposition home or self-care (01) | PROVIDERS: PCP Family Medicine; Visit Provider Obstetrics & Gynecology | DX: A63.0 Anogenital (venereal) warts (principal) ==

== ENCOUNTER → 2022-05-25 | Outpatient (CLI) | payer OTHER, SELFPAY ==
--- NOTE | 2022-05-24 15:00 | WART_PTH ---
PATIENT: CHARLENE GARZA LOC: [facility] U#:[id number] AGE/SX: 56/F ROOM: RE05/25/[address]: TRAVIS Quintanilla : 1965 BED: DIS: 05/25/2022 SPEC #: [id number] RECD: 05/24/22 17:00 STATUS: QUINCY TYLER #: [id number] LEO: 05/24/22 15:[address]: Renee Gannon DEPT: SURGICAL PATHOLOGY RECD BY: Padmaja Larson ENTERED: 05/25/22 08:41 SP TYPE: Wart OTHR DR: MD Janet Brumfield PA Tissues: Vagina, NOS Procedures: Surgery Specimen Level IV Comments: @ Ordering doctor for SUIV edited from SHERI to @ by ALIYAH at 05/25/22 1010 @ Submitting doctor edited from SHERI to @ by ALIYAH at 05/25/22 1010 HEADER OPERATION: Genital wart removal PRE-OP DIAGNOSIS: Genital wart TISSUE SUBMITTED: Vagina MICROSCOPIC DIAGNOSIS Genital lesion, removal: Fragments of condyloma, inflamed. AM:sal 05/28/2022 MICROSCOPIC DESCRIPTION Slides are reviewed. GROSS DESCRIPTION Received is one container labeled with the patient's name and not further designated. The specimen consists of an irregular fragment of hills-pink soft tissue measuring 0.8 x 0.5 x 0.4 cm. The specimen is totally submitted in one cassette. / AM:sal 05/25/2022 TC:5 CPT: 76182
[2022-05-25 08:57] LABS: Hemoglobin A1c 7.4 % (3.8-5.6)
[2022-05-25 09:15] LABS: Magnesium 1.8 mg/dL (1.6-2.6); Phosphorus 3.1 mg/dL (2.5-4.9)
[2022-05-25 09:18] LABS: PTHIN 71.6 pg/mL (18.4-80.1)
[2022-05-25 09:22] LABS: Vitamin D,25 Hydroxy 52.8 ng/mL
== END | disposition home or self-care (01) ==
LOC: LABSPEC 08:26
PROVIDERS: PCP Family Medicine; Visit Provider Physician Assistant
DX: E83.52 Hypercalcemia (principal); E11.9 Type 2 diabetes mellitus without complications
CPT/HCPCS: 36415; 82306; 83036; 83735; 83970; 84100; 88305

== ENCOUNTER 2022-09-11 08:37 | Day surgery (SDC) | payer OTHER, SELFPAY ==
[2022-09-07 11:24] LABS: Hematocrit 42.8 % (37-47); Hemoglobin 13.5 g/dL (12.0-15.0); Mean Corp Hgb Conc 31.5 g/dL (32-36); Mean Corpuscular Hgb 27.5 pg (27.0-32.0); Mean Corpuscular Volume 87.2 fL (81-99); Platelet Count 278 K/mm3 (150-450); RBC Distribution Width CV 16.2 % (11.6-14.6); RBC Distribution Width SD 51.9 fl (35.1-43.9); Red Blood Count 4.91 M/mm3 (4.2-5.4); White Blood Count 6.4 K/mm3 (4.4-11.0)
[2022-09-07 12:03] LABS: ALB/GLOB Ratio 1.1 RATIO (0.9-2.4); AST(SGOT) 14 U/L (15-37); Alanine Aminotransfer ALT/SGPT 23 U/L (13-56); Alkaline Phosphatase 68 U/L (45-117); Anion Gap 7 (5-15); BUN 14 mg/dL (7-18); BUN/Creat Ratio 18.1 RATIO (10-20); Chloride 104 mmol/L (98-107); Creatinine, Serum 0.78 mg/dL (0.55-1.02); EST Glomerular Filtration Rate 82 mL/min (>60); Est Glom Filt Rate - Afr Amer 99 mL/min (>60); Globulin 3.6 g/dL (2.2-4.2); Glucose 155 mg/dL (74-106); Potassium 3.6 mmol/L (3.5-5.1); Protein, Total 7.6 g/dL (6.4-8.2); Sodium Level 139 mmol/L (136-145)
[2022-09-11 09:12] VITALS: BP 144/87; PULSE 76; RESP 18; TEMP 36.6; O2SAT 100; BMI 33.7
[2022-09-11] MEDS: Lactated Ringers 1,000 ML 15 ML IV (09:18)
--- NOTE | 2022-09-11 09:33 | PCM.HP.BLA ---
History and Physical Date of Admission: 09/11/22 Intake Visit Reasons:?Consult laser removal. ref from Mitzi Chief Complaint: surgical consult Hand Cloth Examiner Required: No Is patient in pain?: No Allergies cheese Allergy (Verified 07/12/22 11:39) Swelling Medications levothyroxine 137 mcg tablet 137 mcg PO DAILY 08/04/13 [History Confirmed 08/14/22] losartan 100 mg-hydrochlorothiazide 25 mg tablet 1 tab PO DAILY 08/04/13 [History Confirmed 08/14/22] atorvastatin 10 mg tablet (Lipitor) 10 mg PO DAILY 05/30/21 [History Confirmed 08/14/22] sitagliptin phosphate 50 mg-metformin 1,000 mg tablet 1 tab PO BIDCM 05/30/21 [History Confirmed 08/14/22] lidocaine 5 % topical ointment 1 applic topical TID PRN skin irritation #50 grams 04/03/22 [Rx Confirmed 08/14/22] nystatin 100,000 unit/gram topical cream 1 applic topical BID #30 grams 04/25/22 [Rx Confirmed 08/14/22] fluconazole 150 mg tablet (Diflucan) 150 mg PO Q3D 2 doses #2 tabs 06/05/22 [Rx Confirmed 08/14/22] valacyclovir 1 gram tablet 1,000 mg PO BID #180 tabs 06/05/22 [Rx Confirmed 08/14/22] Is last menstrual period known: No Post menopausal: Yes Patient : No : [facility] Medical History? Chronic neck and back pain COVID-19 Diabetes Hypertension Thyroid disease Surgical History? History of total vaginal hysterectomy (TVH) Family History? Other Diabetes Hypertension Social History?(Updated 08/14/22 @ 15:24 by Mikaela Lynn) Smoking Status:? Never smoker alcohol intake:? never substance use type:? does not use caffeine:? Yes what type of physical activity do you participate in:? walking frequency:? 1-2 times per week seatbelt use:? always do you feel safe at home:? Yes additional social history:? [facility] lab HPI Consult laser removal. ref from JUDAH Details: CHARLENE GARZA is a 56 year old who presents for recurrent vulvar lesions.? Patient has tried over 12 weeks of therapy with the Aldara and had resolution of most of the lesions and also had TCA treatment but still has persistent lesions in the supra urethral region.? She denies any vaginal bleeding or abnormal discharge.? She states her diabetes is fairly well controlled.? She has a history of cervical neoplasia. Female Reproductive History Menopausal Symptoms: No night sweats History ? ? ? 2 ? Elective abortions ? Hx Para ? ? ? 2 ? Spontaneous abortions ? Hx # Term Pregnancies ? Ectopic pregnancies ? Hx # Pregnancies ? Multiple births ? # of living children ? Past Pregnancies Del. Date Name GA/Weeks Outcome Route Bth Weight [facility] F[facility] Unknown [place]-1996 ? Unknown Bren-1999 ? ROS Const Constitutional: Denies fatigue, night sweats, weight gain or weight loss ENT ENT: Reports system reviewed and no additional complaints, except as documented Cardio Card: Denies chest pain Resp Resp: Denies cough or dyspnea GI GI: Reports as per HPI; Denies abdominal pain, constipation, nausea or vomiting : Denies nipple discharge, urinary frequency, urinary incontinence, urinary hesitancy, urinary urgency, vaginal discharge, vaginal dryness, vaginal odor or vaginal pruritus Musc Musc: Denies arthralgias, back pain or muscle weakness Skin Skin/Breast: Denies alopecia, change in hair, dry skin, breast mass, breast pain, breast skin changes or nipple discharge Neuro Neuro: Reports system reviewed and no additional complaints, except as documented Psych Psych: Reports system reviewed and no additional complaints, except as documented Endo Endo: Denies cold intolerance, excessive sweating, heat intolerance or polydipsia Marcelino/Lymph Hematologic/Lymphatic: Denies easy bleeding, Denies easy bruising and Denies lymphadenopathy Exam Const General: cooperative, healthy appearing, comfortable, no acute distress and well developed Orientation: alert [facility] Head: normal to inspection and normocephalic Ears: hearing grossly normal bilaterally and external ears normal Nose: external nose normal and nares normal Face and sinus: normal facial exam Neck Neck: normal visual inspection and no lymphadenopathy Thyroid: thyroid normal Chest Chest palpation & inspection: normal inspection of the chest Resp Effort & Inspection: normal respiratory effort Auscultation: clear to auscultation bilaterally Cardio Rate: regular rate Rhythm: regular rhythm Heart Sounds: S1 normal and S2 normal GI Inspection: normal to inspection and non-distended Palpation: soft and no hepatosplenomegaly External Female Exam: normal external appearance, normal appearance of the urethra and lesion (An area of 5 mm growth x2 superiorly) Urethra: normal appearance of the urethra, normal palpation and no discharge Bimanual Exam- Adnexa, other: normal adnexae, adnexae mobile, no masses and normal Pelvic Support: normal Musc Other: gross motor intact no deficits, full bilateral strength Skin General: no rashes or lesions noted Neuro General: patient alert, patient awake, moves all extremities and no focal motor deficits Motor: muscle tone normal throughout Extrem General: normal to inspection and no pedal edema Psych Appearance: grossly normal Mental Status: mental status grossly normal Affect: normal affect Speech and Movement: speech and movement normal Coding Level of Care Code Off vis,est,level 4 Diagnoses Condyloma acuminata? A63.0 HSV (herpes simplex virus) infection? B00.9 Diabetes? E11.9 Assessment and Plan Assessment and Plan (1) Condyloma acuminata: ?Status:?Acute ?Comment: Failed Aldara treatment.? Recommend CO2 laser ablation and will biopsy at the time to rule out vulvar neoplasia. (2) HSV (herpes simplex virus) infection: ?Status:?Acute ?Comment: valtrex (3) Diabetes: ?Status:?Acute ? ? ? Medications: Discontinued clobetasol 0.05% ?? Discontinued Reason:? Order Changed ?1 applic topical apply bid X 2 weeks, daily X 2 weeks then prn. Small amount and massge in;? 15 grams 2RF ? ? Plan After discussing the patient's diagnosis and treatment plan options, patient wishes to proceed with surgical management.? I have discussed with the patient the risks, benefits, and alternatives of the procedure which include but are not limited to risks of anesthesia, bleeding, infection, possible damage to bowel, bladder, or surrounding vasculature which could lead to additional surgery to evaluate any complications.? Patient agrees to procedure and wishes to proceed.? ACOG/uptodate references given for additional information regarding procedure.? UPDATE- I have seen the patient and performed any clinically relevant updates to the history and physical exam. Leah Torres MD
--- NOTE | 2022-09-11 09:34 | DCINST_ITS ---
Discharge Instructions Procedure Other (co2 laser ablation of vulvar lesions) Diet Discharge Diet: No restrictions Activity Discharge Activity: Return to Normal Activity, May Shower, May Take a Tub Bath (after 3-4 week) and - (may use sitz baths as needed) May shower in (days): 0 May resume sexual activity in: 4-6 weeks Ice area for (Minutes): 15 Weight Bearing Status: Weight bearing as tolerated Lifting Restrictions: none Additional Activity Instructions:: apply silvadene cream or aquaphor, a and d ointment eveyr time you use the restroom or as needed Dressing / Incision Call your doctor if you observe: Fever of 101 or Higher, Using more than 1 pad p er hour, Shortness of breath and Uncontrolled pain Cleanse incision/area with: Soap & Water and Keep Dressing Clean & Dry Follow Up Care Please Follow Up With: Leah Torres MD When: Call [phone] to schedule appointment. Test Results: Test results from this visit will be discussed in further detail at your follow- up appointment, if applicable. Discharge Plan Admission Attending Provider: Leah Torres Primary Care Provider: Ethan Quesada Discharge Orders/Prescriptions Prescriptions: New silver sulfadiazine [silver sulfadiazine] 1 % cream 1 applic topical PRN PRN (Reason: Wound Care) Qty: 1 2RF oxycodone-acetaminophen [Percocet] 5-325 mg tablet 1 tab PO Q6H PRN (Reason: pain) 7 Days Qty: 28 0RF naproxen [naproxen] 500 mg tablet 500 mg PO BID PRN PRN (Reason: Pain) Qty: 30 1RF Continued atorvastatin [Lipitor] 10 mg tablet 10 mg PO DAILY levothyroxine 137 MCG tablet 137 mcg PO DAILY losartan-hydrochlorothiazide 1 TAB tablet 1 tab PO DAILY sitagliptin phos-metformin 50-1,000 mg tablet 1 tab PO BIDCM amoxicillin 500 mg Capsule 500 mg PO TID Jardiance 10 mg Tablet 10 mg PO DAILY valacyclovir 1 gram tablet 1,000 mg PO DAILY Referrals / Follow Up: Ethan Quesada MD [Primary Care Provider] - Disposition Disposition (needs filled in before D/C Order can be placed): Home, Self Care
--- NOTE | 2022-09-11 09:34 | PCM.OPRPT ---
Problems Associated Problem List Diagnoses (1) Condyloma acuminata: Report of Operation Date of Procedure: 09/11/22 Pre-Operative Diagnosis: vulvar lesions condyloma Post-Operative Diagnosis: same Description of Surgical Findings:: two lesions and pre lesion in clitoral area Surgeon: Leah Torres Special Medications: marcaine and silvadene Specimen's removed: vulvar biopsy of lesion Estimated Blood Loss (mL): 10cc Fluids Replaced: crystalloid Description of Procedure: Patient was prepped and draped in the normal sterile fashion in dorsolithotomy position after being placed under MAC anesthesia. Moist towels were draped around the immediate operative area. Marcaine was injected over the areas where the laser was going to be utilized. A 5 mm hole punch biopsy was made over one of the condyloma. A 1 cm margin around both lesions was made and using 7 W continuous for the majority of the treatment both condyloma were eradicated down to the level of the epidermal dermal junction without complication. Excellent hemostasis was noted. The surrounding area to 1 cm was treated. Close inspection of the entire vulva was made and a precondylomatous lesion was noted right on the right clitoral area which was treated with 5 W energy. No additional lesions or areas of suspicion were seen. Patient tolerated procedure well and was awoken and taken recovery in stable condition after Silvadene cream was applied to the area of treatment. Procedures Urinary/Genital 52xxx-[id number]: [id number] Destroy vulva lesions sim
[2022-09-11 09:40] LABS: Bedside Glucose 156 mg/dL (74-106)
[2022-09-11] MEDS: Cefotetan 2 GM in 0.9% NS 100 ML IV (10:07)
--- NOTE | 2022-09-11 10:10 | VUL_PTH ---
PATIENT: CHARLENE GARZA [place] [facility] [id number] AGE/SX: 56/F ROOM: RE09/11/[address]: Dr. Leah Torres MD : 1965 BED: DIS: 09/11/2022 SPEC #: [id number] RECD: 09/11/22 16:35 STATUS: QUINCY SCOTT #: [id number] LEO: 09/11/22 10:[address]: Leah Torres DEPT: SURGICAL PATHOLOGY RECD BY: Padmaja Larson ENTERED: 09/12/22 10:03 SP TYPE: VULVA BX OTHR DR: Dr. Ethan Quesada MD Tissues: Vulva, NOS Procedures: Surgery Specimen Level IV HEADER OPERATION: Excision vulvar tissue with CO2 laser PRE-OP DIAGNOSIS: Condyloma acuminata, HSV infection TISSUE SUBMITTED: Vulvar lesion biopsy MICROSCOPIC DIAGNOSIS Vulvar lesion, biopsy: A piece of squamous mucosa with chronic inflammation and focal changes suggestive of condyloma. See comment. MASON:sal 09/13/2022 COMMENT Viral cytopathic effects are not seen. MICROSCOPIC DESCRIPTION Slides are reviewed. GROSS DESCRIPTION Received in fixative is one container labeled with the patient's name and designated biopsy vulvar lesion. The specimen consists of hills-white skin measuring 0.5 x 0.4 x 0.2 cm. The entire specimen is submitted in one cassette. / MASON:sal 09/12/2022 TC:5 CPT: [id number]
[2022-09-11] MEDS: Bupiv/Epi 0.25% 30 ML Vial (10:20)
[2022-09-11] MEDS: Silver Sulfadiazine 1% Crm 50 gm Bottle 1 APPLIC TOPICAL (10:39)
[2022-09-11] MEDS: ACETIC ACID 1,000 ML IRRIG.SOLN 100 ML IRRIGATION (10:40)
[2022-09-11 10:51] VITALS: BP 132/66; BP 144/87; PULSE 75; RESP 16; TEMP 36.6; O2SAT 99
[2022-09-11 11:00] VITALS: BP 121/70; BP 144/87; PULSE 70; RESP 16; O2SAT 98
[2022-09-11 11:15] VITALS: BP 119/57; BP 144/87; PULSE 68; RESP 16; O2SAT 99
[2022-09-11 11:20] LABS: Bedside Glucose 148 mg/dL (74-106)
[2022-09-11 11:33] VITALS: BP 118/59; BP 144/87; PULSE 63; RESP 16; TEMP 36.8; O2SAT 100
[2022-09-11 12:12] VITALS: BP 144/87
== END 2022-09-11 12:45 | disposition home or self-care (01) ==
LOC: SDC 08:37 → AC 08:39
PROVIDERS: PCP Family Medicine; Referring Provider Obstetrics & Gynecology; Visit Provider Obstetrics & Gynecology
PROC: (CPT 56501; principal; 2022-09-11 09:55)
DX: A63.0 Anogenital (venereal) warts (principal); E11.9 Type 2 diabetes mellitus without complications; B00.9 Herpesviral infection, unspecified; Z86.16 Personal history of COVID-19; I10 Essential (primary) hypertension
CPT/HCPCS: 56501; 36415; 80053; 82962; 85027; 86850; 86900; 86901; 88305; J7120; J2405

== ENCOUNTER → 2023-01-11 | Outpatient (CLI) | payer OTHER, SELFPAY ==
--- NOTE | 2023-01-11 07:38 | MRI_ITS ---
STUDY: MRI LUMBAR SPINE WITHOUT CONTRAST REASON FOR EXAM: Female, 57 years old. LUMBAR RADICULOPATHY, PAIN DOWN L LEG TECHNIQUE: Standardized fat and water weighted pulse sequences were obtained in the sagittal and axial planes. COMPARISON: MRI lumbar spine without contrast 02/12/2018. FINDINGS: T10-T11: (Sagittal only). Normal endplates. Mild disc space height narrowing. No ventral extradural defect. Normal central canal and bilateral intervertebral neural foramina. T11-T12 and T12-L1: (Sagittal only). Normal endplates. Normal disc height and morphology. Normal central canal and bilateral intervertebral neural foramina. Normal lumbar lordosis. There is no substantial scoliosis. Normal conus medullaris that terminates at the mid T12 vertebral body level. L1-2: Normal endplates. Normal disc height, hydration and morphology. Normal bilateral facet joints. Normal central canal and bilateral lateral recesses. Normal bilateral intervertebral neural foramina. L2-3: Normal endplates. Normal disc height, hydration and morphology. Normal bilateral facet joints. Normal central canal and bilateral lateral recesses. Normal bilateral intervertebral neural foramina. L3-4: Normal endplates. Minimal disc space height narrowing. Normal facet joints. Normal central canal and bilateral lateral recesses. Normal bilateral intervertebral neural foramina. This level is unchanged. L4-5: Normal endplates. Mild disc space height narrowing. Mild degenerative anterolisthesis of L4 on L5. Moderate bilateral degenerative facet arthropathy. Normal central canal and bilateral lateral recesses. Mild stenosis of the left intervertebral neural foramen is unchanged. Normal right intervertebral neural foramen. L5-S1: Normal endplates. Normal disc height, hydration and morphology. No significant facet arthropathy. Normal central canal and bilateral lateral recesses. Normal bilateral intervertebral neural foramina. Normal visualized sacral ala. Normal visualized paraspinous soft tissue structures. MRI/Spine Lumbar (Routine) IMPRESSION: 1. Mild degenerative anterolisthesis of L4 on L5, moderate bilateral L4-L5 degenerative facet arthropathy and mild stenosis of the left L4-L5 intervertebral neural foramen. 2. No MRI evidence of lumbar extruded disc fragment, spinal stenosis or nerve root displacement. 3. No significant interval change when compared to 02/12/2018. Electronically Signed: Hair Esparza MD at 12:10 EDT ,
== END | disposition home or self-care (01) ==
LOC: MRI 07:27
PROVIDERS: PCP Family Medicine; Referring Provider Anesthesiology Pain Medicine; Visit Provider Anesthesiology Pain Medicine
DX: M54.16 Radiculopathy, lumbar region (principal); M51.37 Other intervertebral disc degeneration, lumbosacral region; M51.36 Other intervertebral disc degeneration, lumbar region; M54.14 Radiculopathy, thoracic region
CPT/HCPCS: 72148

== ENCOUNTER → 2023-02-25 | Outpatient (CLI) | payer OTHER, SELFPAY | END | disposition home or self-care (01) | PROVIDERS: PCP Family Medicine; Visit Provider Physician Assistant | DX: R30.0 Dysuria (principal) | CPT/HCPCS: 87077; 87086; 87088; 87186 ==

== ENCOUNTER → 2023-03-18 | Outpatient (CLI) | payer OTHER, SELFPAY ==
[2023-03-18 13:15] LABS: Hemoglobin A1c 7.1 % (3.8-5.6)
[2023-03-18 14:28] LABS: Thyroid Stim Hormone (TSH) 5.01 uIU/mL (0.358-3.74)
[2023-03-18 14:54] LABS: Microalbumin,Random Urine < 5.0 mg/L (NO RANGE EST.)
== END | disposition home or self-care (01) ==
LOC: LAB.FUTURE 12:04
PROVIDERS: PCP Family Medicine; Visit Provider Family Medicine
DX: E11.9 Type 2 diabetes mellitus without complications (principal); E03.9 Hypothyroidism, unspecified
CPT/HCPCS: 82043; 82570; 83036; 84443

== ENCOUNTER → 2023-08-19 | Outpatient (CLI) | payer OTHER, SELFPAY ==
[2023-08-19 10:30] LABS: Mucous, Urine 0 SEEN /hpf (<or=2+)
[2023-08-19 10:37] LABS: Color, Urine Yellow (Yellow); Glucose, Dipstick 1000 mg/dl (Normal); Ketone-Dipstick Negative (Negative); Leukocyte Esterase-Dipstick 500 /ul (Negative); Nitrite-Dipstick Negative (Negative); Occult Blood-Urine 250 /ul (Negative); Protein-Dipstick 100 mg/dl (Negative); Urine Bilirubin Dipstick Negative (Negative); Urine Clarity Sl. Cloudy (Clear); Urine Urobilinogen Normal (Normal)
[2023-08-19 10:47] LABS: Bacteria 1+ /hpf (None Seen); Red Blood Cells-Urine 25-50 SEEN /hpf (0-5); Squamous Epithelial Cells - UA 0-5 SEEN /hpf (5-10); White Blood Cells 25-50 SEEN /hpf (0-5)
--- OUTSIDE RECORDS SUMMARY | 2023-08-19 11:35 | XMS RPT_ITS | CCD ---
Author Name Unknown Address [id number] [place] [address] Organization [facility] Care Team Providers Care Special Education Teacher Name Role Phone Paxton Malcolm LPN Unavailable Paxton Rock LPN, MD, William J Primary Care Provider Caleb Quesada MD Primary Care Provider Caleb Quesada MD Primary Care Provider [phone] Caleb Quesada MD Primary Care Provider [phone] CALEB QUESADA Attending Unavailable CALEB QUESADA Primary Care Unavailable Janet MILLER Attending Unavailable CALEB QUESADA Primary Care Unavailable Allergies Allergy Classification Reported Allergen(s) Allergy Type Date of Onset Reaction(s) Facility (14 sources) sharp cheese [Other] Propensity to adverse reactions 6 [facility] Work Phone: (1 source) OTHER; Translations: [OTHER] Propensity to adverse reactions (disorder) [address] [place] [address] Repository Medications Current Medications Medication Drug Class(es) Dates Sig (Normalized) Sig (Original) levothyroxine sodium 0.15 mg oral tablet (17 sources) l-Thyroxine Start: 03-21-2023 End: 03-20-2024 take 1 tablet by mouth once daily for thyroid dysfunction levothyroxine (LEVOXYL) 150 mcg tablet Take 1 tablet by mouth once daily. Take on empty stomach. For Thyroid. 90 tablet 3 03/21/2023 03/20/2024 Active Completed/Discontinued Medications Medication Drug Class(es) Dates Sig (Normalized) Sig (Original) [id number] 200 actuat albuterol 0.09 mg/actuat metered dose inhaler (14 sources) beta2-Adrenergic Agonist Start: 01-08-2019 take 2 puff(s) by inhalation every four hours as needed for wheezing albuterol HFA (VENTOLIN HFA) 90 mcg/actuation inhaler Indications: Wheezing Inhale 2 Puffs as instructed every 4 hours as needed for Wheezing/Shortnes s of Breath. 1 Inhaler 1 01/08/2019 Active Problems Active Problems Problem Classification Problem Date Documented Da te Episodic/Chronic Diabetes mellitus without complication (20 sources) Type 2 diabetes mellitus without complication; Translations: [Type 2 diabetes mellitus without complications] Onset: 02-12-2012 Chronic Disorders of lipid metabolism (5 sources) Mixed hyperlipidemia; Translations: [Mixed hyperlipidemia] Onset: 04-09-2022 Chronic Essential hypertension (17 sources) Essential hypertension; Translations: [Essential (primary) hypertension] Onset: 03-23-2015 03-23-2015 Chronic Immunizations and screening for infectious disease (3 sources) Viral screening status; Translations: [Encounter for screening for other viral diseases] Onset: 03-21-2023 03-21-2023 Episodic Other aftercare (4 sources) Patient encounter status; Translations: [Other alf (current) drug therapy] Episodic Other and unspecified benign neoplasm (17 sources) Benign neoplasm of brain, unspecified; Translations: [Benign neoplasm of brain] Onset: 05-11-2021 05-11-2021 Chronic Other endocrine disorders (15 sources) Polycystic ovary; Translations: [Polycystic ovarian syndrome] Onset: 08-13-2005 08-13-2005 Chronic Other endocrine disorders (1 source) Polycystic ovarian syndrome; Translations: [Polycystic ovaries] Onset: 08-13-2005 Chronic Other nervous system disorders (1 source) Other chronic pain; Translations: [Chronic bilateral low back pain without sciatica] Onset: 04-08-2022 Chronic Other nutritional; endocrine; and metabolic disorders (14 sources) Morbid obesity; Translations: [Morbid (severe) obesity due to excess calories] Onset: 08-13-2005 08-13-2005 Chronic Other nutritional; endocrine; and metabolic disorders (2 sources) Hypercalcemia; Translations: [Hypercalcemia] Chronic Other nutritional; endocrine; and metabolic disorders (1 source) Hypercalcemia; Translations: [Hypercalcemia] Onset: 03-21-2023 Chronic Other nutritional; endocrine; and metabolic disorders (1 source) Morbid (severe) obesity due to excess calories; Translations: [Morbid obesity (HCC)] Onset: 08-13-2005 Chronic Other screening for suspected conditions (not mental disorders or infectious disease) (2 sources) Encounter for screening mammogram for malignant neoplasm of breast; Translations: [Encounter for screening for malignant neoplasm of colon] Onset: 03-21-2023 Episodic Thyroid disorders (20 sources) Hypothyroidism; Translations: [Hypothyroidism, unspecified] Onset: 08-13-2005 04-12-2017 Chronic Unclassified (1 source) Chronic bilateral low back pain without sciatica; Translations: [Chronic bilateral low back pain without sciatica] Onset: 04-08-2022 Past or Other Problems Problem Classification Problem Date Documented Da te Episodic/Chronic Inflammatory diseases of female pelvic organs (2 sources) Vaginitis; Translations: [Acute vaginitis] Onset: 12-22-2016 12-22-2016 Episodic Lung disease due to external agents (17 sources) Reactive airways dysfunction syndrome; Translations: [Other acute and subacute respiratory conditions due to chemicals, gases, fumes and vapors] Onset: 02-23-2010 02-23-2010 Episodic Spondylosis; intervertebral disc disorders; other back problems (20 sources) Lumbosacral radiculopathy; Translations: [Radiculopathy, lumbosacral region] Onset: 12-08-2010 12-08-2010 Episodic Results Test Name Value Interpretation Reference Range Facil ity Vital Signs Date Time Vital Sign Value Performing Clinician Faci lity 03-21-2023 14:50-0400 Body weight 91.63 kg Caleb Quesada MD Work Phone: [facility] 03-21-2023 14:50-0400 Diastolic blood pressure 72 mm[Hg] Caleb Quesada MD Work Phone: [facility] 03-21-2023 14:50-0400 Heart rate 78 /min Caleb Quesada MD Work Phone: [facility] 03-21-2023 14:50-0400 SaO2% (BldA) [Mass fraction] 98 % Caleb Quesada MD Work Phone: [facility] 03-21-2023 14:50-0400 Systolic blood pressure 122 mm[Hg] Caleb Quesada MD Work Phone: [facility] 04-09-2022 15:040 Body height 163 cm NA Miller PA-C Work Phone: [facility] 04-09-2022 15:090400 Body weight 92.35 kg NA Miller PA-C Work Phone: [facility] 04-09-2022 15:090400 Diastolic blood pressure 72 mm[Hg] NA Miller PA-C Work Phone: [facility] 04-09-2022 15:040 Heart rate 98 /min NA Miller PA-C Work Phone: [facility] 04-09-2022 15:090400 Respiratory rate 18 /min NA Miller PA-C Work Phone: [facility] 04-09-2022 15:090400 SaO2% (BldA) [Mass fraction] 100 % NA Miller PA-C Work Phone: [facility] 04-09-2022 15:090400 Systolic blood pressure 130 mm[Hg] NA Miller PA-C Work Phone: [facility] 12-22-2016 09:44-0400 BMI (Body Mass Index) 39.2 kg/m2 Paxton Cerdaius HAND COMPOSITOR [facility] Work Phone: 12-22-2016 09:44-0400 Body Temperature 98.1 [degF] Paxton Malcoml HAND COMPOSITOR [facility] Work Phone: 12-22-2016 09:44-0400 Body weight 103.6 kg Gerardoa Prashantius HAND COMPOSITOR [facility] Work Phone: 12-22-2016 09:44-0400 BP Diastolic 80 mm[Hg] Gerardoa Prashantius HAND COMPOSITOR [facility] Work Phone: 12-22-2016 09:44-0400 BP Systolic 122 mm[Hg] Gerardoa Prashantius HAND COMPOSITOR [facility] Work Phone: 12-22-2016 09:44-0400 Height 162.56 cm Paxton Malcolm LPN [facility] Work Phone: 12-22-2016 09:44-0400 Pulse (Heart Rate) 77 /min [facility] Work Phone: 12-22-2016 09:44-0400 Pulse Oximetry 99 % Paxton Malcolm LPN [facility] Work Phone: 12-22-2016 09:44-0400 Respiratory Rate 17 /min [facility] Work Phone: 12-22-2016 09:44-0400 Weight 103.6 kg Paxton Malcolm LPN [facility] Work Phone: Encounters Encounter Date Encounter Type Care Provider Facility Start: 03-21-2023 End: 03-22-2023 ambulatory CALEB QUESADA Facility:[facility] Start: 03-21-2023 End: 03-21-2023 Patient encounter procedure Caleb Quesada MD Work Phone: [facility] [place] Procedures Date Procedure Procedure Detail Performing Clinician Start: 03-18-2023 CBCDIF (EXTERNAL) Esteban Quesada MD Work Phone: Start: 03-18-2023 Comprehensive metabo lic 2000 panel - Serum or Plasma Caleb Quesada MD Work Phone: Start: 03-18-2023 Hemoglobin A1c/Hemoglobin.total in Blood Caleb Quesada MD Work Phone: Start: 03-18-2023 Lipid panel Caleb Quesada MD Work Phone: Start: 03-18-2023 MICROALBUMIN RANDOM URINE (EXTERNAL) Caleb Quesada MD Work Phone: Start: 03-18-2023 Thyrotropin [Units/v olume] in Serum or Plasma Caleb Quesada MD Work Phone: Start: 05-25-2022 Hemoglobin A1c/Hemoglobin.total in Blood [facility] Provider Start: 05-25-2022 PTH INTACT BLD [facility] Prov ider Start: 05-25-2022 VITAMIN D 25 ([place]) [facility] P rovider Start: 04-11-2022 Mammography Caleb Marmolejo MD Work Phone: Start: 04-04-2022 Hemoglobin A1c/Hemoglobin.total in Blood Caleb Quesada MD Work Phone: Start: 04-04-2022 Lipid panel Caleb Quesada MD Work Phone: Start: 04-04-2022 URINE ALBUMIN W/CREAT RATIO Caleb Quesada MD Work Phone: Start: 05-11-2021 Adult depression scr eening assessment Caleb Quesada MD Work Phone: Start: 04-16-2020 Mammography Caleb Marmolejo MD Work Phone: Start: 12-22-2016 End: 12-22-2016 Documentation of current medications Paxton Malcolm LPN Plan of Treatment Date Care Activity Detail Author Start: 03-16-2026 Urine microalbumin profile DTA P,TDAP,TD (3 - Td or Tdap) [facility] Start: 03-21-2024 ANNUAL PCP TEAM PRODUCT SUPPORT REP SHERYL DISEASE VISIT ANNUAL PCP TEAM CHRONIC DISEASE VISIT [facility] Start: 03-21-2024 BP CONTROLLED (<130/80) BP CONTROLLE D (<130/80) [facility] Start: 03-21-2024 COVID-19 VACCINE (3 - Moderna series) COVID-19 VACCINE (3 - Moderna series) [facility] Immunizations Immunization Date Immunization Notes Care Provider Hyun perry 05-03-2021 influenza, seasonal, injectable, preservative free Chelsea Contreras MA [facility] 05-04-2020 influenza, seasonal, injectable, preservative free Chelsea Contreras MA [facility] 04-23-2019 influenza, seasonal, injectable, preservative free Chelsea Contreras MA [facility] 04-25-2018 influenza, seasonal, injectable, preservative free Chelsea Contreras MA [facility] 04-24-2017 influenza, seasonal, injectable, preservative free Chelsea Contreras MA [facility] 04-26-2016 influenza, seasonal, injectable, preservative free Chelsea Contreras MA [facility] 03-16-2016 pneumococcal polysaccharide vaccine, 23 valent Caleb Quesada MD Work Phone: [facility] 03-16-2016 tetanus toxoid, redu tali diphtheria toxoid, and acellular pertussis vaccine, adsorbed Caleb Quesada MD Work Phone: [facility] 06-13-2015 influenza, seasonal, injectable, preservative free Chelsea Clayernesto RASCON [facility] 04-22-2014 influenza, seasonal, injectable, preservative free Chelsea Contreras MA [facility] 08-05-2013 influenza, seasonal, injectable, preservative free Chelsea Contreras MA [facility] 05-12-2013 influenza virus vacc ine, unspecified formulation Caleb Quesada MD Work Phone: [facility] 07-29-2005 diphtheria and tetan us toxoids, adsorbed for pediatric use Caleb Quesada MD Work Phone: [facility] Work Phone: Payers Date Payer Category Payer Private Health Insurance [employer] A ETNA PPO [id number] 2022-Present [phone] [address] [place] [address] PPO [id number] 2022 Private Health Insurance [id number] 2020 Unknown MMO MMO TPA [id number] 2020-Present [address] [place] [address] PPO [id number] 2020 Unknown MMO MMO TPA [id number] 2020-Present [address] [place] [address] PPO [id number] 2020 Unknown [id number] Social History Date Type Detail Facility Start: 04-03-2011 Tobacco smoking status NHIS Never smoked tobacco [facility] Start: 05-11-2021 End: 04-09-2022 Alcohol intake Current drinker of alcohol (finding) [facility] Start: 05-11-2021 End: 04-09-2022 History SDOH Alcohol Frequency 2 [facility] Start: 05-11-2021 End: 04-09-2022 History SDOH Alcohol Std Drinks 1 [facility] Start: 04-03-2011 History SDOH Alcohol Comment 1 drink per month [facility] Start: 05-11-2021 History SDOH Social Connections Phone 5 [facility] Start: 05-11-2021 History SDOH Social Connections Living 3 [facility] Start: 05-11-2021 Education 15 [facility] Start: 1965 Sex Assigned At Not on file [facility] Start: 04-03-2011 Tobacco use and exposure Smokeless tobacco non-user [facility] Work Phone: Start: 03-30-2022 End: 04-09-2022 Exposure to SARS-CoV-2 (event) Not sure [facility] Start: 05-11-2021 End: 03-21-2023 History of Social function [facility] Start: 05-11-2021 End: 03-21-2023 Social connection and isolation panel [facility] Do you belong to any clubs or organizations such as rastafari groups, unions, fraternal or athletic groups, or school groups? No [facility] Attends Club or Organization Meetings Not on file [facility] Are you now , , , , never or living with a partner? [facility] How often to you hav e a drink containing alcohol? Monthly or less [facility] How many standard dr inks containing alcohol do you have on a typical day? 1 or 2 [facility] How often do you hav e 6 or more drinks on 1 occasion? Never [facility] Do you feel stress - tense, restless, nervous, or anxious, or unable to sleep at night because your mind is troubled all the time - these days [OSQ] Only a little [facility] (I/We) worried wheleo er (my/our) food would run out before (I/we) got money to buy more. Never true [facility] Start: 04-14-2021 Sexual orientation Heterosexual (finding) [facility] Medical Equipment Procedure Code Equipment Code Equipment Origin al Text Equipment Identifier Dates Use as instructed Start: 05-11-2011 Clinical Notes 02-23-2010 to 03-21-2023 Caleb Quesada MD - 03/21/2023 3:07 PM EDTTelephone Encounter - Yuki Rush NAIMA - 03/04/2023 4:18 PM EDTTelephone Encounter - Caleb Quesada MD - 03/04/2023 12:40 PM EDTPatient Instructions Note Date & Type Note Facility 03-21-2023 Note HNO ID: [id number] Author: Caleb Quesada MD Service: ? Author Type: Physician Type: Progress Notes Filed: 03/21/2023 3:35 PM Note Text: Patient presents with: Yearly Exam HPI: Patient presents today for office visit for check up. DM:sugars are slightly better. No hypoglycemic spells. No polydipsia. No polyuria. HYPERTENSION: bp is doing well. HLD:no myalgias. HYPOTHYROID:having issues with weight Fatigued. NEURO:had dermoid cyst mri in05/19. No headaches or neuro issues. Neurology has asked us to follow. Her calcium was high last time and is up again today. Her vit d was ok. Pth was normal Component Latest Ref Rng AND Units 03/18/2023 WBC 3.9 - 11 K/uL 9.3 RBC 4 - 6 M/uL 4.88 HGB 14 - 16.5 g/dL 13.5 (A) HCT 39 - 55 % 43.5 MCV 79 - 98 fL 89.1 MCH 25.4 - 34.6 pg 27.7 MCHC 30 - 36 g/dL 31.0 Platelet 140 - 440 K/uL 298 MPV 7.4 - 10.4 fL 10.2 NEUT % 40 - 74 % 65.9 LYMPH % 20 - 30 % 26.0 MONO % 2 - 8 % 5.0 EOS % 1 - 3 % 1.9 BASO % 0 - 1.5 % 0.8 NEUT ABS 1.9 - 8 K/uL 6.1 LYMPH ABS 1.2 - 4 K/uL 2.41 RDW-CV 11.7 - 15.0 % 14.8 RDW-SD 47.8 NA 136 - 145 mmol/L 138 K 3.5 - 5.1 mmol/L 3.6 Chloride 98 - 107 MEQ/L 104 CO2 21 - 32 MEQ/L 25.0 Glucose 74 - 106 MG/DL 151 (A) BUN 7 - 18 MG/DL 16 Creatinine 0.6 - 1.3 MG/DL 0.73 GFR mL/MIN 88 GFR AFR AMER mL/MIN 107 Total Protein 6.4 - 8.2 gm/dL 7.5 Albumin 3.2 - 4.6 gm/dL 3.8 Calcium 8.5 - 10.1 mg/dL 10.7 (A) Bili Total 0.2 - 1 mg/dL 0.80 AST 8 - 37 U/L 9 ALT (SGPT) 12 - 78 U/L 15 Alk Phos Total 45 - 117 U/L 71 Triglyceride 149 mg/dL 161 (A) CHOLESTEROL, TOTAL 0 - 200 MG/DL 161 HDC-L 41 mg/dL 63 (A) LDL Chol, calculated 130 MG/DL 66 Microalbumin, Random urine <5.0 Urine creatinine random urine 20 - 320 mg/dl 62.70 Hemoglobin A1C 0 - 5.7 % 7.1 (A) TSH 0.2 - 5.6 IU/ml 5.01 MEDICATIONS: Current Outpatient Medications Medication Sig atorvastatin (LIPITOR) 20 mg tablet Take 1 tablet by mouth daily at bedtime. For cholesterol. losartan-hydroCHLOROthiazide (HYZAAR) 100-25 mg per tablet Take 1 tablet by mouth once daily. levothyroxine (SYNTHROID) 137 mcg tablet Take 1 tablet by mouth once daily. Take on empty stomach. For thyroid SITagliptin-metFORMIN (JANUMET) 50-1,000 mg per tablet TAKE 1 TABLET BY MOUTH 2 TIMES A DAY WITH MEALS empagliflozin (JARDIANCE) 10 mg tablet Take 1 tablet by mouth once daily. albuterol HFA (VENTOLIN HFA) 90 mcg/actuation inhaler Inhale 2 Puffs as instructed every 4 hours as needed for Wheezing/Shortness of Breath. blood sugar diagnostic (ACCU-CHEK ACTIVE TEST) Misc test strip Use as instructed No current facility-administered medications for this visit. ALLERGIES: ALLERGIES Allergen Reactions Sharp Cheese [Other] Swelling PAST MEDICAL HISTORY Diagnosis Date Dermoid cyst of brain (HCC) HBP (high blood pressure) 02/23/2010 LBP (low back pain) 12/08/2010 Morbid obesity (HCC) 08/13/2005 Other specified acquired hypothyroidism Polycystic ovaries 08/13/2005 Right-sided Sosa's palsy Type II or unspecified type diabetes mellitus without mention of complication, not stated as uncontrolled PAST SURGICAL HISTORY Procedure Laterality Date VAGINAL HYSTERECTOMY UTERUS 250 GM/< 2005 still has ovaries FAMILY HISTORY Problem Relation Age of Onset Asthma Paternal Grandmother Diabetes Mother Diabetes Father Hypertension Mother Hypertension Maternal Grandfather Coronary Artery Disease Maternal Grandfather 1st LA in 40s Social History Tobacco Use Smoking status: Never Smokeless tobacco: Never Substance Use Topics Alcohol use: Yes Comment: 1 drink per month Drug use: No Reviewed current medications, allergies, past medical history, surgical history, family history and social history today. REVIEW OF SYSTEMS All other reviewed and negative other than HPI. HEALTH MAINTENANCE: Reviewed health maintenance issues today and recommended the following in detail. HEPATITIS B(1 of 3 - 3-dose series) Never done HEPATITIS C SCREENING Never done HIV SCREENING Never done BP CONTROLLED (<130/80) Never done COLORECTAL CANCER SCREENING -colorectal ordered. Wants to do at [facility] PNEUMOCOCCAL(2 - PCV) due on 03/16/2017 SHINGRIX VACCINE(1 of 2) Never done COVID-19 VACCINE(3 - Moderna series) due on 10/19/2020 DILATED RETINAL EXAM- is due soon DEPRESSION ASSESSMENT Never done DIABETIC FOOT EXAM due on 04/09/2023 MAMMOGRAM due on 04/11/2023 VITALS: BP 122/72 Pulse 78 Wt 91.6 kg (202 lb) SpO2 98% BMI 34.49 kg/m? Last 4 Encounter Wt Readings: Date: Wt: 03/21/2023 91.6 kg (202 lb) 04/09/2022 92.4 kg (203 lb 9.6 oz) 05/11/2021 93.9 kg (207 lb) 02/27/2020 85.7 kg (189 lb) PHYSICAL EXAMINATION: General appearance: Well appearing, alert, in no acute distress, well-hydrated, well nourished. Skin: Skin color, texture, turgor normal, no suspicious rashes or lesions Head: Normocephalic, no masses, lesions, tendernes (more content not included)... [facility] 03-21-2023 History of Present illness Narrative Patient presents with: Yearly Exam HPI: Patient presents today for office visit for check up. DM:sugars are slightly better. No hypoglycemic spells. No polydipsia. No polyuria. HYPERTENSION: bp is doing well. HLD:no myalgias. HYPOTHYROID:having issues with weight Fatigued. NEURO:had dermoid cyst mri in05/19. No headaches or neuro issues. Neurology has asked us to follow. Her calcium was high last time and is up again today. Her vit d was ok. Pth was normal Component Latest Ref Rng & Units 03/18/2023 WBC 3.9 - 11 K/uL 9.3 RBC 4 - 6 M/uL 4.88 HGB 14 - 16.5 g/dL 13.5 (A) HCT 39 - 55 % 43.5 MCV 79 - 98 fL 89.1 MCH 25.4 - 34.6 pg 27.7 MCHC 30 - 36 g/dL 31.0 Platelet 140 - 440 K/uL 298 MPV 7.4 - 10.4 fL 10.2 NEUT % 40 - 74 % 65.9 LYMPH % 20 - 30 % 26.0 MONO % 2 - 8 % 5.0 EOS % 1 - 3 % 1.9 BASO % 0 - 1.5 % 0.8 NEUT ABS 1.9 - 8 K/uL 6.1 LYMPH ABS 1.2 - 4 K/uL 2.41 RDW-CV 11.7 - 15.0 % 14.8 RDW-SD 47.8 NA 136 - 145 mmol/L 138 K 3.5 - 5.1 mmol/L 3.6 Chloride 98 - 107 MEQ/L 104 CO2 21 - 32 MEQ/L 25.0 Glucose 74 - 106 MG/DL 151 (A) BUN 7 - 18 MG/DL 16 Creatinine 0.6 - 1.3 MG/DL 0.73 GFR mL/MIN 88 GFR AFR AMER mL/MIN 107 Total Protein 6.4 - 8.2 gm/dL 7.5 Albumin 3.2 - 4.6 gm/dL 3.8 Calcium 8.5 - 10.1 mg/dL 10.7 (A) Bili Total 0.2 - 1 mg/dL 0.80 AST 8 - 37 U/L 9 ALT (SGPT) 12 - 78 U/L 15 Alk Phos Total 45 - 117 U/L 71 Triglyceride 149 mg/dL 161 (A) CHOLESTEROL, TOTAL 0 - 200 MG/DL 161 HDC-L 41 mg/dL 63 (A) LDL Chol, calculated 130 MG/DL 66 Microalbumin, Random urine <5.0 Urine creatinine random urine 20 - 320 mg/dl 62.70 Hemoglobin A1C 0 - 5.7 % 7.1 (A) TSH 0.2 - 5.6 IU/ml 5.01 MEDICATIONS: Current Outpatient Medications Medication Sig atorvastatin (LIPITOR) 20 mg tablet Take 1 tablet by mouth daily at bedtime. For cholesterol. losartan-hydroCHLOROthiazide (HYZAAR) 100-25 mg per tablet Take 1 tablet by mouth once daily. levothyroxine (SYNTHROID) 137 mcg tablet Take 1 tablet by mouth once daily. Take on empty stomach. For thyroid SITagliptin-metFORMIN (JANUMET) 50-1,000 mg per tablet TAKE 1 TABLET BY MOUTH 2 TIMES A DAY WITH MEALS empagliflozin (JARDIANCE) 10 mg tablet Take 1 tablet by mouth once daily. albuterol HFA (VENTOLIN HFA) 90 mcg/actuation inhaler Inhale 2 Puffs as instructed every 4 hours as needed for Wheezing/Shortness of Breath. blood sugar diagnostic (ACCU-CHEK ACTIVE TEST) Misc test strip Use as instructed No current facility-administered medications for this visit. ALLERGIES: ALLERGIES Allergen Reactions Sharp Cheese [Other] Swelling PAST MEDICAL HISTORY Diagnosis Date Dermoid cyst of brain (HCC) HBP (high blood pressure) 02/23/2010 LBP (low back pain) 12/08/2010 Morbid obesity (HCC) 08/13/2005 Other specified acquired hypothyroidism Polycystic ovaries 08/13/2005 Right-sided Sosa's palsy Type II or unspecified type diabetes mellitus without mention of complication, not stated as uncontrolled PAST SURGICAL HISTORY Procedure Laterality Date VAGINAL HYSTERECTOMY UTERUS 250 GM/< 2005 still has ovaries FAMILY HISTORY Problem Relation Age of Onset Asthma Paternal Grandmother Diabetes Mother Diabetes Father Hypertension Mother Hypertension Maternal Grandfather Coronary Artery Disease Maternal Grandfather 1st LA in 40s Social History Tobacco Use Smoking status: Never Smokeless tobacco: Never Substance Use Topics Alcohol use: Yes Comment: 1 drink per month Drug use: No Reviewed current medications, allergies, past medical history, surgical history, family history and social history today. REVIEW OF SYSTEMS All other reviewed and negative other than HPI. HEALTH MAINTENANCE: Reviewed health maintenance issues today and recommended the following in detail. HEPATITIS B(1 of 3 - 3-dose series) Never done HEPATITIS C SCREENING Never done HIV SCREENING Never done BP CONTROLLED (<130/80) Never done COLORECTAL CANCER SCREENING -colorectal ordered. Wants to do at [facility] PNEUMOCOCCAL(2 - PCV) due on 03/16/2017 SHINGRIX VACCINE(1 of 2) Never done COVID-19 VACCINE(3 - Moderna series) due on 10/19/2020 DILATED RETINAL EXAM- is due soon DEPRESSION ASSESSMENT Never done DIABETIC FOOT EXAM due on 04/09/2023 MAMMOGRAM due on 04/11/2023 VITALS: BP 122/72 Pulse 78 Wt 91.6 kg (202 lb) SpO2 98% BMI 34.49 kg/m Last 4 Encounter Wt Readings: Date: Wt: 03/21/2023 91.6 kg (202 lb) 04/09/2022 92.4 kg (203 lb 9.6 oz) 05/11/2021 93.9 kg (207 lb) 02/27/2020 85.7 kg (189 lb) PHYSICAL EXAMINATION: General appearance: Well appearing, alert, in no acute distress, well-hydrated, well nourished. Skin: Skin color, texture, turgor normal, no suspicious rashes or lesions Head: Normocephalic, no masses, lesions, tenderness or abnormalities Neck: Supple, no adenopathy; thyroid symmetric, normal size, no bruit Lungs: Lungs clear to auscultation. No wheezing, rhonchi, rales Heart: RRR without murmur, gallop, or rubs. No ectopy Abdomen: Normal abdominal exam, Abdomen soft, non-tender. Bowel sounds normal. No masses, organomegaly Extremities: No deformities, edema, skin discoloration, clubbing or cyanosis. Good capillary refill. Musculoskeletal: No joint swelling, deformity, or tenderness ASSESSMENT/PLAN: 1. Essential hypertension - ICD9: 401.9, ICD10: I10 (primary diagnosis) - Controlled - Continue current medications 2. Controlled type 2 diabetes mellitus without complication, unspecified whether bottle carrier insulin use (HCC) - ICD9: 250.00, ICD10: E11.9 - Controlled - Continue current medications 3. Dermoid cyst of brain (HCC) - ICD9: 225.0, ICD10: D33.2 - check annually 4. Hypothyroidism, unspecified type - ICD9: 244.9, ICD10: E03.9 - increased dose to 150 mcg and recheck tsh in six weeks. 5. Reactive airways dysfunction syndrome (HCC) - ICD9: 506.3, ICD10: J68.3 - stable. 6. Hypercalcemia - ICD9: 275.42, ICD10: E83.52 - recheck lbas. - PTH INTACT BLD - CALCIUM IONIZED BLOOD 7. Encounter for screening mammogram for malignant neoplasm of breast - ICD9: V76.12, ICD10: Z12.31 - Follow up for annual exam in one year. - SAFIA SCREENING W LEVAR 8. Screening for colon cancer - ICD9: V76.51, ICD10: Z12.11 - COLONOSCOPY SCREENING 9. Screening for HIV (human immunodeficiency virus) - ICD9: V73.89, ICD10: Z11.4 - HIV 1 2 COMBO(AG/AB),WITH REFLEX TO DIFFERENTIATION 10. Need for hepatitis C screening test - ICD9: V73.89, ICD10: Z11.59 - HEPATITIS C ANTIBODY IA WITH CONFIRMATION Caleb Quesada MD documented in this encounter [facility] 03-04-2023 Miscellaneous Notes Sent to [facility] ER. Orders placed. Patient is scheduled for physical 03/21/23. There are no lab orders currently Please advise documented in this encounter [facility] 03-04-2023 Miscellaneous Notes Patient has been identified by name and date of : Yes Requested Prescriptions Pending Prescriptions Disp Refills losartan-hydroCHLOROthiazide (HYZAAR) 100-25 mg per tablet 90 tablet 3 Sig: Take 1 tablet by mouth once daily. RX INSTRUCTIONS: Patient aware RX will be sent to pharmacy. No need to notify patient. Scheduled 03/21/23 Yuki Rush LPN documented in this encounter [facility] 03-04-2023 Miscellaneous Notes Patient phones requesting refills as follows: Requested Prescriptions Pending Prescriptions Disp Refills atorvastatin (LIPITOR) 20 mg tablet 30 tablet 5 Sig: Take 1 tablet by mouth daily at bedtime. For cholesterol. ELIO 04/09/2022 NOV 03/21/2023 Please review and advise. Sarah Shaffer LPN documented in this encounter [facility] 11-02-2022 Miscellaneous Notes Patient has been identified by name and date of : Yes Requested Prescriptions Pending Prescriptions Disp Refills empagliflozin (JARDIANCE) 10 mg tablet 30 tablet 5 Sig: Take 1 tablet by mouth once daily. Take 1 tablet once daily in the morning RX INSTRUCTIONS: Patient aware RX will be sent to pharmacy. No need to notify patient. Yuki Rush LPN documented in this encounter [facility] 08-21-2022 Miscellaneous Notes Patient has been identified by name and date of : Yes Requested Prescriptions Pending Prescriptions Disp Refills atorvastatin (LIPITOR) 20 mg tablet 30 tablet 5 Sig: Take 1 tablet by mouth daily at bedtime. For cholesterol. levothyroxine (SYNTHROID) 137 mcg tablet 90 tablet 1 Sig: Take 1 tablet by mouth once daily. Take on empty stomach. For thyroid SITagliptin-metFORMIN (JANUMET) 50-1,000 mg per tablet 180 tablet 1 Sig: TAKE 1 TABLET BY MOUTH 2 TIMES A DAY WITH MEALS RX INSTRUCTIONS: Pharmacy initiated this request. No need to notify patient. Devika Bolton Pss documented in this encounter [facility] 06-01-2022 Miscellaneous Notes Checked [facility] system for Vit D level. 52.8 added to chart. Hgb A1C was also checked that day and was 7.4 Left message for pt to return call to office. Jason Mccoy LPN Left message for patient to return call. Chelsea Contreras Ma Please advise: Hgba1c 8.1% above controled range which should be <7% Started Jardiance 04/09/2022- too early to see full effect. Mildly elevated alb:cre ratio indicating slight renal protein related to diabetes - this will improve with better control. Recheck hgba1c in 3 months. Calcium remains elevated 10.3, albumin 3.9 which adjust calcium slightly lower No vitamin D in lab copies. Thyroid is in good range. Cholesterol 127, HDL 51, LDL 50: perfect! Thanks, Karl Miller PA-C Results of PTH, A1C, Mag, Vit D and Phos received via fax from [facility]. Placed in provider's mailbox for further review. Jason Mccoy LPN documented in this encounter [facility] 05-03-2022 Note HNO ID: [id number] Author: Chandrika Membreno Ma Service: ? Author Type: ? Type: Progress Notes Filed: 05/03/2022 1:43 PM Note Text: Letter mailed to pt home notifying pt mri is unchanged. Chandrika Membreno Ma [facility] 05-03-2022 History of Present illness Narrative Letter mailed to pt home notifying pt mri is unchanged. Chandrika Membreno Ma Let her know MRI is unchanged. Results of CT ordered by PCP, completed at [facility] scanned into Epic under scanned documents tab. Scan on 05/02/2022 1:12 AM by External Provider: CT Scan documented in this encounter [facility] 05-02-2022 Note HNO ID: [id number] Author: Caleb Quesada MD Service: ? Author Type: Physician Type: Progress Notes Filed: 05/03/2022 1:43 PM Note Text: Let her know MRI is unchanged. [facility] 05-02-2022 Note HNO ID: [id number] Author: Jason Mccoy LPN Service: ? Author Type: ? Type: Progress Notes Filed: 05/03/2022 1:43 PM Note Text: Results of CT ordered by PCP, completed at [facility] scanned into Epic under scanned documents tab. Scan on 05/02/2022 1:12 AM by External Provider: CT Scan [facility] 04-09-2022 Note HNO ID: [id number] Author: Janet Miller PA-C Service: ? Author Type: Physician Asphalt Spreader Operator Type: Progress Notes Filed: 04/09/2022 6:30 PM Note Text: 56 year old female with c/o annual wellness Current concerns: No concerns, doing well overall. Active Problem review: Essential hypertension Current meds: Losartan hydrochlorothiazide 100-25 mg daily Patient is compliant with meds Yes Monitors bp at home: No. If yes, readings: Denies side effects: No. Chest pain: No. Dyspnea: No. Edema: No. Palpitations: No. Syncope: No. Headache: Yes. Dizziness: No. Last 3 Encounter BP Readings: Date: BP: 05/11/2021 136/80 02/27/2020 122/64 04/20/2019 134/82 Last 2 Encounter Wt Readings: Date: Wt: 05/11/2021 93.9 kg (207 lb) 02/27/2020 85.7 kg (189 lb) Mixed hyperlipidemia Current medication Atorvastatin 20 mg daily at bedtime Taking medication consistently Yes Observing low cholesterol high fiber diet No Muscle aches No Stomach complaints/ diarrhea No Last 2 Lipids: Component Latest Ref Rng AND Units 04/04/2022 Triglyceride 149 mg/dL 130 Cholesterol, Total 0 - 200 MG/DL 127 HDC-L 41 mg/dL 51 (A) LDL Chol, calculated 130 MG/DL 113 CHOLESTEROL (MG/DL) Date Value 12/17/2017 173 Cholesterol (no units) Date Value 04/30/2021 213 12/12/2019 180 HDL Cholesterol (no units) Date Value 04/30/2021 56 12/12/2019 50 HDL (MG/DL) Date Value 12/17/2017 47 LDL Cholesterol (no units) Date Value 04/30/2021 114 12/12/2019 84 Triglyceride (no units) Date Value 04/30/2021 213 12/12/2019 228 12/17/2017 362 Controlled type 2 diabetes mellitus without complication, unspecified whether bottle carrier insulin use (hcc) Current medications: Sitagliptin-metformin 50-1000 mg 1 tablet twice a day with meals Taking medication as directed consistently? Yes Medical Issues / Complications: hypertension and hyperlipidemia Checking blood sugars at home? No. Watching diet? No Physical Activity: 15 minute dance exercise daily Hypoglycemic spells? No Any visual disturbance? No Chest pain? No New numbness, tingling or loss of sensation? No Any recent foot problems, sores or rashes? No Any recent or sudden weight loss? No Change in urination? Start of URI last few days, may be stress. If yes: Any recent illness? No Last eye exam: July. Last foot exam: up to date. HBA1C: Hemoglobin A1C Date Value 04/04/2022 8.1 % 04/30/2021 7.2 07/26/2020 6.4 ) Last 2 Encounter Wt Readings: Date: Wt: 05/11/2021 93.9 kg (207 lb) 02/27/2020 85.7 kg (189 lb) Hypothyroidism, unspecified type Current medication: Levothyroxine 137 MCG daily AC Taking as directed on an empty stomach? Yes Thyroid pain: No. Mass effect: No. Change in energy level/ fatigue? No. Sleep disturbance ?No. Temperature Intolerance: cold No, hot some hot flashes at night but going through menpause. In females, menstrual cycle issues? No bleeding, If yes: Change in bowel habits? No. If yes: Constipation? No. If yes: Diarrhea? No. If yes: Weight changes?No. Memory issues: No. Diaphoresis: No. Numbness, tingling toes sometimes, because r/t sciatica Radiological imaging with contrast dyes within the last 3 months? Yes. History of radiation exposure to head or neck area? No. Change in hair or skin? Yes following Coivd, stress. 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 Interval history: none. Current medications: Albuterol MDI 90 MCG per actuation 2 puffs Q4H PRN Worsening shortness of breath: No. Cough: No. Wheezing: No. Smoking: never. Compliant with medications: Yes. Using rescue inhaler: none. Dermoid cyst of brain (hcc) Asymptomatic Oustanding MRI orders 09/10/2018 CT brain with/without contrast W ELBERT Disla with comparison 02/08/2017, 06/05/2016 3.8 x 1.7 x 2.3 cm lesion left paramedian posterior fossa with uniform fat signal intensity. Lesion somewhat lobulated. Primary differential consideration include quadrigeminal cistern lipoma (congenital etiology anti-(versus intracranial dermoid. Lesion appears minimally increased compared to 2017. Otherwise normal except for trace mucosal thickening in left maxillary sinus. Neuropathy, lumbosacral (radicular) Chronic bilateral low back pain without sciatica Pain bilateral low back pain, if acting up down lateral legs to knee, not in years. No specific treatment Morbid obesity (hcc) Vitals 04/20/2019 02/27/2020 05/11/2021 04/09/2022 WEIGHT in POUNDS 223 lb 189 lb 207 lb 203 lb 9.6 oz WEIGHT in KILOGRAMS 101.152 kg 85.73 kg 93.895 kg 92.352 kg Polycystic ovaries Menopausal- no current issues. Seeing MARKET RELATIONSHIP MANAGER for other treatments HISTORIES FAMILY HISTORY Problem Relat (more content not included)... [facility] 04-09-2022 Instructions M Primitivo Miller PA-C - 04/09/2022 3:52 PM EDT Empagliflozin: Patient drug information Access [employer] Online for additional drug information, tools, and databases. Copyright 0709-9502 [employer]. All rights reserved. (For additional information see Empagliflozin: Drug information ) You must carefully read the Consumer Information Use and Disclaimer below in order to understand and correctly use this information. Brand Names: [place] Jardiance Brand Names: Rosalia Jardiance What is this drug used for? It is used to lower blood sugar in patients with high blood sugar (diabetes). It is used to lower the chance of from heart disease in certain people. What do I need to tell my doctor BEFORE I take this drug? If you are allergic to this drug; any part of this drug; or any other drugs, foods, or substances. Tell your doctor about the allergy and what signs you had. If you have any of these health problems: Acidic blood problem or type 1 diabetes. If you have kidney disease. If you are dehydrated, talk with your doctor. If you are or may be . Do not take this drug if you are in the second or third trimester of . If you are breast-feeding. Do not breast-feed while you take this drug. This is not a list of all drugs or health problems that interact with this drug. Tell your doctor and pharmacist about all of your drugs (prescription or OTC, natural products, vitamins) and health problems. You must check to make sure that it is safe for you to take this drug with all of your drugs and health problems. Do not start, stop, or change the dose of any drug without checking with your doctor. What are some things I need to know or do while I take this drug? Tell all of your health care providers that you take this drug. This includes your doctors, nurses, pharmacists, and dentists. This drug may need to be stopped before certain types of surgery as your doctor has told you. If this drug is stopped, your doctor will tell you when to start taking this drug again after your surgery or procedure. Do not drive if your blood sugar has been low. There is a greater chance of you having a crash. To lower the chance of feeling dizzy or passing out, rise slowly if you have been sitting or lying down. Be careful going up and down stairs. Be careful in hot weather or while being active. Drink lots of fluids to stop fluid loss. If you are not able to eat or drink like normal, talk with your doctor. This includes if you are sick, fasting, or you are having certain procedures or surgery. If you cannot drink liquids by mouth or if you have upset stomach, throwing up, or diarrhea that does not go away; you need to avoid getting dehydrated. Contact your doctor to find out what to do. Dehydration may lead to new or worse kidney problems. High cholesterol has happened with this drug. If you have questions, talk with the doctor. Have blood work checked as you have been told by the doctor. Talk with the doctor. This drug may affect certain lab tests. Tell all of your health care providers and lab workers that you take this drug. It may be harder to control blood sugar during times of stress such as fever, infection, injury, or surgery. A change in physical activity, exercise, or diet may also affect blood sugar. Check your blood sugar as you have been told by your doctor. Talk with your doctor about which glucose tests are best to use. Too much acid in the blood or urine (ketoacidosis) and severe urinary tract infections (UTIs) have happened. Ketoacidosis can be deadly. Both of these may need to be treated in a hospital. Kidney problems have happened. Sometimes, these may need to be treated in the hospital or with dialysis. Follow the diet and workout plan that your doctor told you about. If you are on a low-salt or salt-free diet, talk with your doctor. Talk with your doctor before you drink alcohol. A rare but very bad infection has happened with drugs like this one. This infection may be deadly. Get medical help right away if your genitals or the area between your genitals and rectum becomes tender, red, or swollen, and you have a fever or do not feel well. If you are 65 or older, use this drug with care. You could have more side effects. This drug may cause harm to the unborn baby if you take it while you are . If you are or you get while taking this drug, call your doctor right away. What are some side effects that I need to call my doctor about right away? WARNING/CAUTION: Even though it may be rare, some people may have very bad and sometimes deadly side effects when taking a drug. Tell your doctor or get medical help right away if you have any of the following signs or symptoms that may be related to a very bad side effect: Signs of an allergic reaction, like rash; hives; itching; red, swollen, blistered, or peeling skin with or without fever; wheezing; tightness in the chest or throat; trouble breathing, swallowing, or talking; unusual hoarseness; or swelling of the mouth, face, lips, tongue, or throat. Signs of fluid and electrolyte problems like mood changes, confusion, muscle pain or weakness, a heartbeat that does not feel normal, very bad dizziness or passing out, fast heartbeat, more thirst, seizures, feeling very tired or weak, not hungry, unable to pass urine or change in the amount of urine produced, dry mouth, dry eyes, or very bad upset stomach or throwing up. Signs of kidney problems like unable to pass urine, change in how much urine is passed, blood in the urine, or a big weight gain. Signs of too much acid in the blood (acidosis) like confusion; fast breathing; fast heartbeat; a heartbeat that does not feel normal; very bad stomach pain, upset stomach, or throwing up; feeling very sleepy; shortness of breath; or feeling very tired or weak. Signs of a urinary tract infection (UTI) like blood in the urine, burning or pain when passing urine, feeling the need to pass urine often or right away, fever, lower stomach pain, or pelvic pain. Vaginal yeast infection. Report itching or discharge. Yeast infection of the penis. Report pain, swelling, rash, or discharge. Low blood sugar can happen. The chance may be raised when this drug is used with other drugs for diabetes. Signs may be dizziness, headache, feeling sleepy or weak, shaking, fast heartbeat, confusion, hunger, or sweating. Call your doctor right away if you have any of these signs. Follow what you have been told to do for low blood sugar. This may include taking glucose tablets, liquid glucose, or some fruit juices. What are some other side effects of this drug? All drugs may cause side effects. However, many people have no side effects or only have minor side effects. Call your doctor or get medical help if you have any side effects that bother you or do not go away. These are not all of the side effects that may occur. If you have questions about side effects, call your doctor. Call your doctor for medical advice about side effects. You may report side effects to your national health agency. How is this drug best taken? Use this drug as ordered by your doctor. Read all information given to you. Follow all instructions closely. Take with or without food. Take in the morning. Drink lots of noncaffeine liquids unless told to drink less liquid by your doctor. Keep taking this drug as you have been told by your doctor or other health care provider, even if you feel well. What do I do if I miss a dose? Take a missed dose as soon as you think about it. If it is close to the time for your next dose, skip the missed dose and go back to your normal time. Do not take 2 doses at the same time or extra doses. If you are not sure what to do if you miss a dose, call your doctor. How do I store and/or throw out this drug? Store at room temperature in a dry place. Do not store in a bathroom. Keep all drugs in a safe place. Keep all drugs out of the reach of children and pets. Throw away unused or drugs. Do not flush down a toilet or pour down a drain unless you are told to do so. Check with your pharmacist if you have questions about the best way to throw out drugs. There may be drug take-back programs in your area. General drug facts If your symptoms or health problems do not get better or if they become worse, call your doctor. Do not share your drugs with others and do not take anyone else's drugs. Some drugs may have another patient information leaflet. If you have any questions about this drug, please talk with your doctor, nurse, pharmacist, or other health care provider. If you think there has been an overdose, call your poison control center or get medical care right away. Be ready to tell or show what was taken, how much, and when it happened. Last Reviewed [id number] Consumer Information Use and Disclaimer This information should not be used to decide whether or not to take this medicine or any other medicine. Only the healthcare provider has the knowledge and training to decide which medicines are right for a specific patient. This information does not endorse any medicine as safe, effective, or approved for treating any patient or health condition. This is only a brief summary of general information about this medicine. It does NOT include all information about the possible uses, directions, warnings, precautions, interactions, adverse effects, or risks that may apply to this medicine. This information is not specific medical advice and does not replace information you receive from the healthcare provider. You must talk with the healthcare provider for complete information about the risks and benefits of using this medicine. The use of this information is governed by the [employer] End User License Agreement, available at https://www.SiTime/en/s olutions/[employer]/about/ernesto. 2020 [employer]. and its affiliates and/or licensors. All rights reserved. Use of [employer] is subject to the Subscription and License Agreement. Topic 16627 Version 70.0 documented in this encounter [facility] 04-09-2022 History of Present illness Narrative 56 year old female with c/o annual wellness Current concerns: No concerns, doing well overall. Active Problem review: Essential hypertension Current meds: Losartan hydrochlorothiazide 100-25 mg daily Patient is compliant with meds Yes Monitors bp at home: No. If yes, readings: Denies side effects: No. Chest pain: No. Dyspnea: No. Edema: No. Palpitations: No. Syncope: No. Headache: Yes. Dizziness: No. Last 3 Encounter BP Readings: Date: BP: 05/11/2021 136/80 02/27/2020 122/64 04/20/2019 134/82 Last 2 Encounter Wt Readings: Date: Wt: 05/11/2021 93.9 kg (207 lb) 02/27/2020 85.7 kg (189 lb) Mixed hyperlipidemia Current medication Atorvastatin 20 mg daily at bedtime Taking medication consistently Yes Observing low cholesterol high fiber diet No Muscle aches No Stomach complaints/ diarrhea No Last 2 Lipids: Component Latest Ref Rng & Units 04/04/2022 Triglyceride 149 mg/dL 130 Cholesterol, Total 0 - 200 MG/DL 127 HDC-L 41 mg/dL 51 (A) LDL Chol, calculated 130 MG/DL 113 CHOLESTEROL (MG/DL) Date Value 12/17/2017 173 Cholesterol (no units) Date Value 04/30/2021 213 12/12/2019 180 HDL Cholesterol (no units) Date Value 04/30/2021 56 12/12/2019 50 HDL (MG/DL) Date Value 12/17/2017 47 LDL Cholesterol (no units) Date Value 04/30/2021 114 12/12/2019 84 Triglyceride (no units) Date Value 04/30/2021 213 12/12/2019 228 12/17/2017 362 Controlled type 2 diabetes mellitus without complication, unspecified whether bottle carrier insulin use (hcc) Current medications: Sitagliptin-metformin 50-1000 mg 1 tablet twice a day with meals Taking medication as directed consistently? Yes Medical Issues / Complications: hypertension and hyperlipidemia Checking blood sugars at home? No. Watching diet? No Physical Activity: 15 minute dance exercise daily Hypoglycemic spells? No Any visual disturbance? No Chest pain? No New numbness, tingling or loss of sensation? No Any recent foot problems, sores or rashes? No Any recent or sudden weight loss? No Change in urination? Start of URI last few days, may be stress. If yes: Any recent illness? No Last eye exam: July. Last foot exam: up to date. HBA1C: Hemoglobin A1C Date Value 04/04/2022 8.1 % 04/30/2021 7.2 07/26/2020 6.4 ) Last 2 Encounter Wt Readings: Date: Wt: 05/11/2021 93.9 kg (207 lb) 02/27/2020 85.7 kg (189 lb) Hypothyroidism, unspecified type Current medication: Levothyroxine 137 MCG daily AC Taking as directed on an empty stomach? Yes Thyroid pain: No. Mass effect: No. Change in energy level/ fatigue? No. Sleep disturbance ?No. Temperature Intolerance: cold No, hot some hot flashes at night but going through menpause. In females, menstrual cycle issues? No bleeding, If yes: Change in bowel habits? No. If yes: Constipation? No. If yes: Diarrhea? No. If yes: Weight changes?No. Memory issues: No. Diaphoresis: No. Numbness, tingling toes sometimes, because r/t sciatica Radiological imaging with contrast dyes within the last 3 months? Yes. History of radiation exposure to head or neck area? No. Change in hair or skin? Yes following Coivd, stress. 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 Interval history: none. Current medications: Albuterol MDI 90 MCG per actuation 2 puffs Q4H PRN Worsening shortness of breath: No. Cough: No. Wheezing: No. Smoking: never. Compliant with medications: Yes. Using rescue inhaler: none. Dermoid cyst of brain (hcc) Asymptomatic Oustanding MRI orders 09/10/2018 CT brain with/without contrast W ELBERT Disla with comparison 02/08/2017, 06/05/2016 3.8 x 1.7 x 2.3 cm lesion left paramedian posterior fossa with uniform fat signal intensity. Lesion somewhat lobulated. Primary differential consideration include quadrigeminal cistern lipoma (congenital etiology anti-(versus intracranial dermoid. Lesion appears minimally increased compared to 2017. Otherwise normal except for trace mucosal thickening in left maxillary sinus. Neuropathy, lumbosacral (radicular) Chronic bilateral low back pain without sciatica Pain bilateral low back pain, if acting up down lateral legs to knee, not in years. No specific treatment Morbid obesity (hcc) Vitals 04/20/2019 02/27/2020 05/11/2021 04/09/2022 WEIGHT in POUNDS 223 lb 189 lb 207 lb 203 lb 9.6 oz WEIGHT in KILOGRAMS 101.152 kg 85.73 kg 93.895 kg 92.352 kg Polycystic ovaries Menopausal- no current issues. Seeing MARKET RELATIONSHIP MANAGER for other treatments HISTORIES FAMILY HISTORY Problem Relation Age of Onset Asthma Paternal Grandmother Diabetes Mother Diabetes Father Hypertension Mother Hypertension Maternal Grandfather Coronary Artery Disease Maternal Grandfather 1st LA in 40s PAST MEDICAL HISTORY Diagnosis Date Dermoid cyst of brain (HCC) HBP (high blood pressure) 02/23/2010 LBP (low back pain) 12/08/2010 Morbid obesity (HCC) 08/13/2005 Other specified acquired hypothyroidism Polycystic ovaries 08/13/2005 Right-sided Sosa's palsy Type II or unspecified type diabetes mellitus without mention of complication, not stated as uncontrolled PAST SURGICAL HISTORY Procedure Laterality Date VAGINAL HYSTERECTOMY 2005 still has ovaries Social History Tobacco Use Smoking status: Never Smokeless tobacco: Never Substance Use Topics Alcohol use: Yes Comment: 1 drink per month Drug use: No ACTIVE PROBLEM LIST Morbid Obesity (Hcc) Polycystic Ovaries Hypothyroidism Reactive Airways Dysfunction Syndrome (Hcc) Neuropathy, Lumbosacral (Radicular) Lbp (Low Back Pain) Diabetes Mellitus Type 2, Controlled, Without Complications (Hcc) Essential Hypertension Dermoid Cyst of Brain (Hcc) Current Outpatient Medications Medication Sig Dispense Refill losartan-hydroCHLOROthiazide (HYZAAR) 100-25 mg per tablet Take 1 tablet by mouth once daily. 90 tablet 3 levothyroxine (SYNTHROID) 137 mcg tablet Take 1 tablet by mouth once daily. Take on empty stomach. For thyroid 90 tablet 1 SITagliptin-metFORMIN (JANUMET) 50-1,000 mg per tablet TAKE 1 TABLET BY MOUTH 2 TIMES A DAY WITH MEALS 180 tablet 1 atorvastatin (LIPITOR) 20 mg tablet Take 1 tablet by mouth daily at bedtime. For cholesterol. 30 tablet 5 albuterol HFA (VENTOLIN HFA) 90 mcg/actuation inhaler Inhale 2 Puffs as instructed every 4 hours as needed for Wheezing/Shortness of Breath. 1 Inhaler 1 blood sugar diagnostic (ACCU-CHEK ACTIVE TEST) Misc test strip Use as instructed 1 Bottle 11 No current facility-administered medications for this visit. HEPATITIS B(1 of 3 - 3-dose series) Never done HEPATITIS C SCREENING Never done HIV SCREENING Never done BP CONTROLLED (<130/80) Never done COLORECTAL CANCER SCREENING Never done PNEUMOCOCCAL(2 - PCV) due on 03/16/2017 SHINGRIX VACCINE(1 of 2) Never done COVID-19 VACCINE(3 - Booster for Moderna series) due on 01/22/2021 MAMMOGRAM due on 04/16/2021 INFLUENZA(1) due on 03/29/2022 LDL CHOLESTEROL due on 04/30/2022 REVIEW OF SYMPTOMS: REVIEW OF SYSTEMS PAIN ASSESSMENT: Negative for pain, history of chronic pain, or current treatment for a chronic pain condition. GENERAL: No weight loss, malaise or fevers HEENT: Negative for frequent or significant headaches, No changes in hearing or vision, no nose bleeds or other nasal problems, SEE HPI NECK: Negative for lumps, goiter, pain and significant neck swelling, See HPI RESPIRATORY: See HPI CARDIOVASCULAR: Negative for chest pain, leg swelling, hypertension, CHF or palpitations GI: No nausea, vomiting, or diarrhea and See HPI : No history of dysuria, frequency or incontinence MARKET RELATIONSHIP MANAGER: Negative for abnormal vaginal bleeding, abnormal vaginal discharge or SEE HPI MUSCULOSKELETAL: Negative for joint pain or swelling, back pain or muscle pain SKIN: Negative for lesions, rash, and itching PSYCH: Negative for sleep disturbance, mood disorder and recent psychosocial stressors, See HPI HEMATOLOGY/LYMPHOLOGY: Negative for prolonged bleeding, bruising easily or swollen nodes ENDOCRINE: See HPI NEURO: No history of headaches, syncope, paralysis, seizures or tremors Exercise not much, but as above does some dance routines for 15 minutes 2 or 3 times a week. Sleep: hours: About 6 hours, not particularly refreshing. Diet: Patient is not really watching diet as above. Tobacco use: None. Caffeine use: 8oz coffee or diet Mt Dew. ETOH use: very rarely. Marijuana use: none. Illicit drug use: none. - EXAM: BP 130/72 Pulse 98 Resp 18 Ht 163 cm (5' 4.17 ) Wt 92.4 kg (203 lb 9.6 oz) SpO2 100% BMI 34.76 kg/m Pleasant overweight but healthy appearing adult woman in no acute distress. Alert and oriented all spheres. Normal affect and cognition. Speech normal. No deficits to learning or comprehension. Skin warm, dry, pink to lips and nailbeds. Normal turgor. Respirations regular and unlabored. HEENT: NCAT. No scleral icterus or conjunctival injection. TM's clear. Nose and oropharynx free from injection or lesion. Oral membranes moist and pink. No cervical lymph nodes. Thyroid non-tender, no masses, or enlargement. Carotids pulses 2+/4+ without bruits. No JVD with HOB at 30 degrees. Chest is normal shape. Lungs are clear to all santiago with good air exchange through out. HRRR without murmur or gallop. No lifts, heaves, or rubs. Abdomen: active bowel sounds throughout, soft, nontender, no masses or organomegaly. No CVAT. Extrem: no clubbing, cyanosis, edema. Distal pulses 2+/4, prompt capillary refill. Gait and balance normal. Sensation grossly intact. Negative findings: speech normal, mental status intact, cranial nerves 2-12 intact, muscle tone normal, DTRs 2/4+ and symmetric. Feet:Shoes and socks removed, No deformities, ulcers, calluses, normal distal pulses, and sensitive to 10 gm monofilament ASSESSMENT/PLAN: 1. Well adult exam - ICD9: V70.0, ICD10: Z00.00 (primary diagnosis) - Counseled on healthy diet and regular exercise - Calcium intake with supplements or by diet of 1000 mg/day for under 50, 3297-6137 mg/day for 50+ - Discussed need and benefit for weight loss. BMI 34.76 kg/(m^2) - Depression screening tool completed and reviewed with patient. Based on score and interview, patient is already diagnosed with depression and recommended no further intervention at this time. - Follow up for annual exam in one year Forms completed. 2. Essential hypertension - ICD9: 401.9, ICD10: I10 - good control - Continue current medication(s) - Recommended regular aerobic exercise. - Recommend home blood pressure monitoring, to bring results in on next visit - Goal of BP <130/80 3. Mixed hyperlipidemia - ICD9: 272.2, ICD10: E78.2 - good control - Continue current medication. - Encouraged following a low fat, low cholesterol diet. - Discussed the benefits of regular aerobic exercise and weight loss. 4. Controlled type 2 diabetes mellitus without complication, unspecified whether alf insulin use (HCC) - ICD9: 250.00, ICD10: E11.9 uncontrolled - Continue current medications - Add below: - EMPAGLIFLOZIN 10 MG TABLET: new medication administration , warnings, side effects, discontinuation reviewed- see d/c instructions - HGB A1C - MAGNESIUM BLD - PHOSPHORUS INORGANIC 5. Hypothyroidism, unspecified type - ICD9: 244.9, ICD10: E03.9 - Instructed patient on importance of taking on an empty stomach either first thing in the morning or at bedtime. Weight increasing - Behavioral intervention 6. Reactive airways dysfunction syndrome (HCC) - ICD9: 506.3, ICD10: J68.3 Quiescent with no recent medicaiton use 7. Dermoid cyst of brain (HCC) - ICD9: 225.0, ICD10: D33.2 Stabl himanshu last check: pending MRI 8. Neuropathy, lumbosacral (radicular) - ICD9: 724.4, ICD10: M54.17 Intermittent with sciatica. None recent 9. Chronic bilateral low back pain without sciatica - ICD9: 724.2, 338.29, ICD10: M54.50, G89.29 Doing well in general 10. Morbid obesity (HCC) - ICD9: 278.01, ICD10: E66.01 Weight increasing - Behavioral intervention 11. Polycystic ovaries - ICD9: 256.4, ICD10: E28.2 Following with MARKET RELATIONSHIP MANAGER 12. Serum calcium elevated - ICD9: 275.42, ICD10: E83.52 - MAGNESIUM BLD - PHOSPHORUS INORGANIC - VITAMIN D 25 HYDROXY - PTH INTACT BLD 13. Medication management - ICD9: V58.69, ICD10: Z79.899 For lab F/u 6 months Janet Miller PA-C documented in this encounter [facility] 02-20-2022 Miscellaneous Notes Patient has been identified by name and date of : Yes Pending Prescriptions Disp Refills LOSARTAN 100 MG-HYDROCHLOROTHIAZIDE 25 MG TABLET 90 tablet 3 Sig: Take 1 tablet by mouth once daily. LEONEL: No RX INSTRUCTIONS: Patient aware RX will be sent to pharmacy. No need to notify patient. Milagros Rice Pss documented in this encounter [facility] 02-19-2022 Miscellaneous Notes Patient has been identified by name and date of : Yes Pending Prescriptions Disp Refills ATORVASTATIN 20 MG TABLET 30 tablet 5 Sig: Take 1 tablet by mouth daily at bedtime. For cholesterol. LEONEL: No LEVOTHYROXINE 137 MCG TABLET 90 tablet 1 Sig: Take 1 tablet by mouth once daily. Take on empty stomach. For thyroid LEONEL: No LOSARTAN 100 MG-HYDROCHLOROTHIAZIDE 25 MG TABLET 90 tablet 0 Sig: Take 1 tablet by mouth once daily. LEONEL: No JANUMET 50 MG-1,000 MG TABLET 180 tablet 1 Sig: TAKE 1 TABLET BY MOUTH 2 TIMES A DAY WITH MEALS LEONEL: No RX INSTRUCTIONS: Patient aware RX will be sent to pharmacy. No need to notify patient. Selam Mario MA Elio; 04/2021 No appointment scheduled Last refill: 10/2021 documented in this encounter [facility] 11-21-2021 Miscellaneous Notes Patient has been identified by name and date of : Yes Patient phones for refill(s): Pending Prescriptions Disp Refills JANUMET 50 MG-1,000 MG TABLET 180 tablet 1 Sig: TAKE 1 TABLET BY MOUTH 2 TIMES A DAY WITH MEALS LEONEL: No Date of last office visit in primary care: Please advise. Thank you. Mamta Doe LPN documented in this encounter [facility] documented as of this encounter (statuses as of 11/21/2021) [facility] History of Past illness Narrative* Problem Noted Date Resolved Date HBP (high blood pressure) 02/23/20102014 Metabolic syndrome 02/23/2010 04/12/2017 Essential hypertension, benign 08/13/2005 0 02/23/2010 documented as of this encounter (statuses as of 02/19/2022) [facility] History of Past illness Narrative* Problem Noted Date Resolved Date HBP (high blood pressure) 02/23/20102014 Metabolic syndrome 02/23/2010 04/12/2017 Essential hypertension, benign 08/13/2005 0 02/23/2010 documented as of this encounter (statuses as of 02/20/2022) [facility] History of Past illness Narrative* Problem Noted Date Resolved Date HBP (high blood pressure) 02/23/20102014 Metabolic syndrome 02/23/2010 04/12/2017 Essential hypertension, benign 08/13/2005 0 02/23/2010 documented as of this encounter (statuses as of 04/05/2022) [address]29-2010 History of Past illness Narrative* Problem Noted Date Resolved Date HBP (high blood pressure) 02/23/20102014 Metabolic syndrome 02/23/2010 04/12/2017 Essential hypertension, benign 08/13/2005 0 02/23/2010 documented as of this encounter (statuses as of 04/09/2022) [address]-2010 History of Past illness Narrative* Problem Noted Date Resolved Date HBP (high blood pressure) 02/23/20102014 Metabolic syndrome 02/23/2010 04/12/2017 Essential hypertension, benign 08/13/2005 0 02/23/2010 documented as of this encounter (statuses as of 05/03/2022) [address]2010 History of Past illness Narrative* Problem Noted Date Resolved Date HBP (high blood pressure) 02/23/20102014 Metabolic syndrome 02/23/2010 04/12/2017 Essential hypertension, benign 08/13/2005 0 02/23/2010 documented as of this encounter (statuses as of 08/21/2022) [facility] History of Past illness Narrative* Problem Noted Date Resolved Date HBP (high blood pressure) 02/23/20102014 Metabolic syndrome 02/23/2010 04/12/2017 Essential hypertension, benign 08/13/2005 0 02/23/2010 documented as of this encounter (statuses as of 10/02/2022) [address]2010 History of Past illness Narrative* Problem Noted Date Resolved Date HBP (high blood pressure) 02/23/20102014 Metabolic syndrome 02/23/2010 04/12/2017 Essential hypertension, benign 08/13/2005 0 02/23/2010 documented as of this encounter (statuses as of 11/03/2022) [place] [address]29-2010 History of Past illness Narrative* Problem Noted Date Diagnosed Date Resolved Date HBP (high blood pressure) 02/23/2010 Metabolic syndrome 02/23/2010 7 Essential hypertension, benign 08/13/2005 02/23/2010 documented as of this encounter (statuses as of 03/04/2023) [address]2010 History of Past illness Narrative* Problem Noted Date Diagnosed Date Resolved Date HBP (high blood pressure) 02/23/2010 Metabolic syndrome 02/23/2010 7 Essential hypertension, benign 08/13/2005 02/23/2010 documented as of this encounter (statuses as of 03/04/2023) [address]2010 History of Past illness Narrative* Problem Noted Date Diagnosed Date Resolved Date HBP (high blood pressure) 02/23/2010 Metabolic syndrome 02/23/2010 7 Essential hypertension, benign 08/13/2005 02/23/2010 documented as of this encounter (statuses as of 03/05/2023) [address]2010 History of Past illness Narrative* Problem Noted Date Diagnosed Date Resolved Date HBP (high blood pressure) 02/23/2010 Metabolic syndrome 02/23/2010 7 Essential hypertension, benign 08/13/2005 02/23/2010 documented as of this encounter (statuses as of 03/19/2023) [address]2010 History of Past illness Narrative* Problem Noted Date Diagnosed Date Resolved Date HBP (high blood pressure) 02/23/2010 Metabolic syndrome 02/23/2010 7 Morbid obesity 08/13/2005 03/21/2023 Essential hypertension, benign 08/13/2005 02/23/2010 documented as of this encounter (statuses as of 03/22/2023) [facility] Diagnosis Controlled type 2 diabetes mellitus without complication, without long-term current use of insulin (HCC) [facility] Diagnosis Controlled type 2 diabetes mellitus without complication, unspecified whether alf insulin use (HCC) Mixed hyperlipidemia Hypothyroidism, unspecified type [facility] Controlled type 2 diabetes mellitus without complication, without long-term current use of insulin (HCC) [facility] Diagnosis Well adult exam- Primary Routine general medical examination at a health care facility Essential hypertension Unspecified essential hypertension Mixed hyperlipidemia Controlled type 2 diabetes mellitus without complication, unspecified whether bottle carrier insulin use (HCC) Hypothyroidism, unspecified type Reactive airways dysfunction syndrome (HCC) Unspecified asthma 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 Neuropathy, lumbosacral (radicular) Thoracic or lumbosacral neuritis or radiculitis, unspecified Chronic bilateral low back pain without sciatica Morbid obesity (HCC) Morbid obesity Polycystic ovaries Serum calcium elevated Hypercalcemia Medication management Encounter for long-term (current) use of other medications documented in this encounter [facility] note* Diagnosis Controlled type 2 diabetes mellitus without complication, unspecified whether alf insulin use (HCC) Mixed hyperlipidemia Hypothyroidism, unspecified type documented in this encounter [facility] note* Diagnosis Controlled type 2 diabetes mellitus without complication, unspecified whether alf insulin use (HCC) documented in this encounter [facility] note* Diagnosis Controlled type 2 diabetes mellitus without complication, unspecified whether alf insulin use (HCC) Mixed hyperlipidemia documented in this encounter [facility] note* Diagnosis Controlled type 2 diabetes mellitus without complication, without long-term current use of insulin (HCC) documented in this encounter [facility] note* Diagnosis Controlled type 2 diabetes mellitus without complication, unspecified whether alf insulin use (HCC)- Primary Hypothyroidism, unspecified type documented in this encounter [facility] note* Diagnosis Essential hypertension- Primary Unspecified essential hypertension Controlled type 2 diabetes mellitus without complication, unspecified whether bottle carrier insulin use (HCC) 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 Hypothyroidism, unspecified type Reactive airways dysfunction syndrome (HCC) Unspecified asthma Hypercalcemia Encounter for screening mammogram for malignant neoplasm of breast Other screening mammogram Screening for colon cancer Special screening for malignant neoplasms, colon Screening for HIV (human immunodeficiency virus) Special screening examination for other specified viral diseases Need for hepatitis C screening test Special screening examination for other specified viral diseases documented in this encounter [facility] for referral (narrative)* Outpatient Procedure (Routine) - Pending Review Specialty Diagnoses / Procedures Referred By Anisha moreno Referred To Contact [facility] Diagnoses Screening for colon cancer Procedures COLONOSCOPY SCREENING COLONOSCOPY FLX DX W/COLLJ SPEC WHEN PFRMD Caleb Quesada MD [address] [place] [address] [facility] [address] [place] [address] Referral ID Status Reason Start Date Expiration Date Visits Requested Visits Authorized [id number] Pending Review Auto-Generat ed Referral 03/21/2023 03/21/2024 1 1 * Diagnostic Procedure Only (Routine) - Pending Review Specialty Diagnoses / Procedures Referred By Contac t Referred To Contact [facility] Diagnoses Encounter for screening mammogram for malignant neoplasm of breast Procedures SAFIA SCREENING W LEVAR SCREENING DIGITAL BREAST TOMOSYNTHESIS BI SCREENING MAMMOGRAPHY BI 2-VIEW BREAST INC CAD Caleb Quesada MD [address] [place] [address] [facility] [address] [place] [address] Referral ID Status Reason Start Date Expiration Date Visits Requested Visits Authorized [id number] Pending Review Auto-Generat ed Referral 03/21/2023 04/19/2024 1 1 [facility] Summary Purpose Family History No Family History Records Found Advance Directives No Advanced Directives Records Found Additional Source Comments Source Comments (unrecognize d section and content) In the event this informatio n is protected by the Federal Confidentiality of Alcohol and Drug Abuse Patient Records regulations: The Federal rules restrict any use of the information to criminally investigate or prosecute any alcohol or drug abuse patient.[facility] the event this information is protected by the Federal Confidentiality of Alcohol and Drug Abuse Patient Records regulations: The Federal rules restrict any use of the information to criminally investigate or prosecute any alcohol or drug abuse patient.[facility] the event this information is protected by the Federal Confidentiality of Alcohol and Drug Abuse Patient Records regulations: The Federal rules restrict any use of the information to criminally investigate or prosecute any alcohol or drug abuse patient.[facility] the event this information is protected by the Federal Confidentiality of Alcohol and Drug Abuse Patient Records regulations: The Federal rules restrict any use of the information to criminally investigate or prosecute any alcohol or drug abuse patient.[facility] the event this information is protected by the Federal Confidentiality of Alcohol and Drug Abuse Patient Records regulations: The Federal rules restrict any use of the information to criminally investigate or prosecute any alcohol or drug abuse patient.[facility] the event this information is protected by the Federal Confidentiality of Alcohol and Drug Abuse Patient Records regulations: The Federal rules restrict any use of the information to criminally investigate or prosecute any alcohol or drug abuse patient.[facility] the event this information is protected by the Federal Confidentiality of Alcohol and Drug Abuse Patient Records regulations: The Federal rules restrict any use of the information to criminally investigate or prosecute any alcohol or drug abuse patient.[facility] the event this information is protected by the Federal Confidentiality of Alcohol and Drug Abuse Patient Records regulations: The Federal rules restrict any use of the information to criminally investigate or prosecute any alcohol or drug abuse patient.[facility] the event this information is protected by the Federal Confidentiality of Alcohol and Drug Abuse Patient Records regulations: The Federal rules restrict any use of the information to criminally investigate or prosecute any alcohol or drug abuse patient.[facility] the event this information is protected by the Federal Confidentiality of Alcohol and Drug Abuse Patient Records regulations: The Federal rules restrict any use of the information to criminally investigate or prosecute any alcohol or drug abuse patient.[facility] the event this information is protected by the Federal Confidentiality of Alcohol and Drug Abuse Patient Records regulations: The Federal rules restrict any use of the information to criminally investigate or prosecute any alcohol or drug abuse patient.[facility] the event this information is protected by the Federal Confidentiality of Alcohol and Drug Abuse Patient Records regulations: The Federal rules restrict any use of the information to criminally investigate or prosecute any alcohol or drug abuse patient.[facility] the event this information is protected by the Federal Confidentiality of Alcohol and Drug Abuse Patient Records regulations: The Federal rules restrict any use of the information to criminally investigate or prosecute any alcohol or drug abuse patient.[facility] Hospital[facility] the event this information is protected by the Federal Confidentiality of Alcohol and Drug Abuse Patient Records regulations: The Federal rules restrict any use of the information to criminally investigate or prosecute any alcohol or drug abuse patient.[facility] Reason for Visit (unrecogniz ed section and content) Reason Onset Date Comments Refill Request 02/19/2022 Reason Comments Prescription Refills Reason Comments Physical Physical, needs insu rama form signed Reason Onset Date Comments Refill Request 08/21/2022 Reason Comments Results Reason Onset Date Comments Refill Request 11/02/2022 Reason Onset Date Comments Refill Request 03/04/2023 Reason Comments Yearly Exam Care Teams (unrecognized sec tion and content) Special Education Teacher Relationship Specialty Start Date End Date Caleb Quesada MD [address] [place] [address] PCP - General Family Practice 07/25/12 Special Education Teacher Relationship Specialty Start Date End Date Caleb Quesada MD [facility] [place] [address] PCP - General Family Practice 07/25/12 Special Education Teacher Relationship Specialty Start Date End Date Caleb Quesada MD [address] [place] [id number] PCP - General Family Practice 07/25/12 Special Education Teacher Relationship Specialty Start Date End Date Caleb Quesada MD [facility] [place] [address] PCP - General Family Practice 07/25/12 Special Education Teacher Relationship Specialty Start Date End Date Caleb Quesada MD [address] [place] [id number] PCP - General Family Medicine 07/25/12 Special Education Teacher Relationship Specialty Start Date End Date Caleb Quesada MD [address] [place] [address] PCP - General Family Medicine 07/25/12 Special Education Teacher Relationship Specialty Start Date End Date Caleb Quesada MD [address] [place] [address] PCP - General Family Medicine 07/25/12 Special Education Teacher Relationship Specialty Start Date End Date Caleb Quesada MD [address] [place] [address] PCP - General Family Medicine 07/25/12 Special Education Teacher Relationship Specialty Start Date End Date Caleb Quesada MD [address] [place] [address] PCP - General Family Medicine 07/25/12 Special Education Teacher Relationship Specialty Start Date End Date Caleb Quesada MD [address] [place] [address] PCP - General Family Medicine 07/25/12 Special Education Teacher Relationship Specialty Start Date End Date Caleb Quesada MD [address] [place], [place] [id number] PCP - General Family Medicine 07/25/12 Special Education Teacher Relationship Specialty Start Date End Date Caleb Quesada MD [address] [place] [address] PCP - General Family Medicine 07/25/12 Special Education Teacher Relationship Specialty Start Date End Date Caleb Quesada MD [address] [place], [place] [id number] PCP - General Family Medicine 07/25/12 INFORMATION SOURCE (unrecogn ized section and content) FOR RECORDS PERTAINING TO PATIENTS WHO ARE OR HAVE BEEN ENROLLED IN A CHEMICAL DEPENDENCY/SUBSTANCEABUSE PROGRAM, SOME INFORMATION MAY BE OMITTED. This clinical summary was aggregated from multiple sources. Caution should be exercised in using it in the provision of clinical care. This summary normalizes information from multiple sources, and as a consequence, information in this document may materially change the coding, format and clinical context of patient data. In addition, data may be omitted in some cases. CLINICAL DECISIONS SHOULD BE BASED ON THE PRIMARY CLINICAL RECORDS. [facility]. provides no warranty or guarantee of the accuracy or completeness of information in this document.
== END | disposition home or self-care (01) ==
LOC: LABSPEC 10:12
PROVIDERS: PCP Family Medicine; Referring Provider Nurse Practitioner Family; Visit Provider Nurse Practitioner Family
DX: R30.0 Dysuria (principal)
CPT/HCPCS: 81001; 87086; 87088

== ENCOUNTER → 2023-12-01 | Outpatient (CLI) | payer OTHER, SELFPAY ==
[2023-12-01 08:30] LABS: Ionized Calcium 5.37 mg/dL (4.36-5.20)
[2023-12-01 08:43] LABS: Cholesterol 172 mg/dL (200); High Density Lipoprotein 54 mg/dL; Triglycerides 222 mg/dL; Very Low Density Lipoprotein 44 mg/dL (5-40)
[2023-12-01 08:47] LABS: Hemoglobin A1c 7.6 % (3.8-5.6)
[2023-12-01 09:53] LABS: Microalbumin,Random Urine < 5.0 mg/L (NO RANGE EST.)
[2023-12-02 08:00] LABS: PTHIN 71.2 pg/mL (18.4-80.1)
== END | disposition home or self-care (01) ==
LOC: LAB 08:12
PROVIDERS: PCP Family Medicine; Visit Provider Family Medicine
DX: E83.52 Hypercalcemia (principal); E11.9 Type 2 diabetes mellitus without complications; E78.2 Mixed hyperlipidemia
CPT/HCPCS: 36415; 80061; 82043; 82330; 82570; 83036; 83970

== ENCOUNTER → 2024-01-06 | Outpatient (CLI) | payer OTHER, SELFPAY ==
[2024-01-06 15:08] LABS: Ionized Calcium 5.38 mg/dL (4.36-5.20)
[2024-01-06 17:18] LABS: PTHIN 69.1 pg/mL (18.4-80.1)
[2024-01-06 17:24] LABS: Vitamin D,25 Hydroxy 26.2 ng/mL
[2024-01-06 22:45] LABS: Ionized Calcium Order ORDER TUBE
[2024-01-13 12:08] LABS: Vitamin D 1,25-Dihydroxy 34.5 pg/mL (24.8-81.5)
== END | disposition home or self-care (01) ==
PROVIDERS: PCP Family Medicine; Visit Provider Family Medicine
DX: E83.52 Hypercalcemia (principal)
CPT/HCPCS: 36415; 82306; 82330; 82652; 83970

== ENCOUNTER 2024-01-14 20:06 | Emergency (ER) | payer OTHER, SELFPAY ==
[2024-01-14 20:06] VITALS: BP 149/76; PULSE 105; RESP 18; TEMP 36.1; O2SAT 97; BMI 32.9
--- NOTE | 2024-01-14 20:20 | ED.VIS.LOWEX ---
HPI History of Present Illness Chief Complaint: Lower Extremity Injury Detail of Chief Complaint: Leg injury Informant: patient Narrative Narrative: Patient presents with injury to her left leg. She states that she and her boss went outside to look at something and she accidentally bumped a garbage bin with her right knee causing her to lose her balance and fall onto her left leg. She was able to get up and able to bear weight. She has been ambulatory. She complains of pain with certain motions to the posterior calf and anterior tib-fib region. Denies striking her head or loss of consciousness. No other injuries. [facility] Medical History Anemia Arthritis Chronic neck and back pain COVID-19 COVID-19 Diabetes Diabetes Dietary restriction History of edema Hypertension Migraine headache Non-smoker Thyroid disease Wears glasses Home Medications ?Medication ?Instructions ?Recorded ?Last Taken ?Type levothyroxine 137 mcg tablet 137 mcg PO DAILY 08/04/13 08/04/13 History losartan 100 1 tab PO DAILY 08/04/13 08/04/13 History mg-hydrochlorothiazide 25 mg tablet atorvastatin 10 mg tablet (Lipitor) 10 mg PO DAILY 05/30/21 Unknown History sitagliptin phosphate 50 1 tab PO BIDCM 05/30/21 Unknown History mg-metformin 1,000 mg tablet empagliflozin 10 mg tablet 10 mg PO DAILY 09/05/22 Unknown History (Jardiance) Allergy/AdvReac Type Severity Reaction Status Date / Time cheese Allergy Swelling Verified 01/14/24 20:11 Family History Other Diabetes Hypertension Surgical History History of total vaginal hysterectomy (TVH) Social History Smoking Status: Never smoker alcohol intake: never substance use type: does not use caffeine: Yes what type of physical activity do you participate in: walking frequency: 1-2 times per week seatbelt use: always do you feel safe at home: Yes additional social history: [facility] lab ROS ROS ED Review of Systems ROS Unobtainable: other Constitutional Constitutional ED: Reports lethargy; Denies chills, fever(s), sweats or weight loss Eyes Eyes: Denies blurry vision, change in vision or diplopia ENT ENT ED: Denies rhinorrhea or sore throat Cardiovascular Cardiovascular: Denies chest pain, orthopnea or racing heartbeat Respiratory/Chest Respiratory/Chest: Denies cough, dyspnea, dyspnea on exertion, orthopnea or sputum Gastrointestinal Gastrointestinal: Denies abdominal pain, diarrhea, nausea or vomiting Genitourinary Genitourinary ED: Denies dysuria, hematuria or urinary frequency Musculoskeletal Musculoskeletal: Reports other Details: Left leg injury ; Denies arthralgias, back pain, myalgias or neck pain Integumentary Denies abscess, Abrasions or rash Neurologic Neurologic: Denies headache(s) or weakness Psychiatric Psychiatric: Denies anxiety, depression or suicidal thoughts Endocrine Endocrinology: Denies polydipsia, polyphagia or polyuria Hematologic/Lymphatic Hematologic/Lymphatic: Denies easy bleeding, easy bruising or lymphadenopathy Allergic/Immunologic Allergic/Immunologic ED: Denies mouth swelling, tongue swelling or urticaria EXAM Physical Exam Const Vital Signs: 01/14/24 20:06 Temperature 97 F L Temperature Source Temporal Pulse Rate 105 H Respiratory Rate 18 Blood Pressure 149/76 H Blood Pressure Mean 100 Pulse Ox 97 Oxygen Delivery Method Room Air Positive well nourished and well developed General Appearance ED: well developed and NAD HEENT Reports TM's clear and moist mucous membranes normocephalic and atraumatic; Negative for trauma or tenderness Tympanic Membrane ED: Yes TM's clear Eyes PERRL and EOMs intact bilaterally General Eye ED: Negative for pale conjunctiva or scleral icterus Neck no lymphadenopathy, supple and no JVD General: Negative for tenderness Chest Wall inspection of chest normal and palpation of chest normal Chest: Negative for tenderness Resp normal respiratory effort and clear to auscultation bilaterally Effort and Inspection: Negative for respiratory distress or pain with movement Auscultation: Negative for rhonchi, wheezes or diminished lung sounds Cardio regular rate, regular rhythm, S1 normal heart sound, S2 normal heart sound and no murmurs Peripheral Pulses: pulses 2+ throughout GI normal to inspection, nondistended, normoactive bowel sounds, soft to palpation, non-tender, non-distended and no masses Back/Spine no CVA tenderness and no thoracic nor lumbar tenderness Extremity Extremity Narrative: Left leg-patient is some mild diffuse tenderness over the anterior distal tibia. No ecchymosis or bruising. She has mild tenderness over the left calf. No significant tenderness about the knee or ankle on exam. He has normal flexion extension at the knee and no ligamentous laxity noted with anterior posterior drawer test. She had no laxity with varus or valgus stress. General Extremety ED: Negative for edema General Extremity: Negative for edema Neuro oriented x3, CN's II-XII intact bilaterally, no sensory deficits noted and gait normal Sensorium / Orientation: awake, alert, oriented to person, oriented to place and oriented to time Motor Exam: strength 5/5 throughout and strength abnormal Psych mental status grossly normal Skin no rashes or lesions noted and no wounds MDM MDM MDM Narrative Medical decision making narrative: Patient presents with a fall and injury to her left leg. X-rays of the left tib-fib obtained were negative for fracture. She does not want crutches or [place] wrap. Patient does not need work restrictions. Will have her follow-up with corporate care within the next 3 to 5 days. Advised on ice to the area and ibuprofen and Tylenol for discomfort. Lidocaine is with dorsiflexion of her foot which involves the tibialis anterior and suspect this muscles been strained as this seems to be where a lot of her pain is. Radiography Diagnostic Testin view x-rays of the left tib-fib obtained interpreted by myself as no evidence of fracture or dislocation. Discharge Plan Triage Chief Complaint: Lower Extremity Injury ED Provider: Alfonso Rutherford Dx/Rx/DC Orders Clinical Impression: Muscle strain of left lower leg Instructions: ED Muscle Strain, Extremity Prescriptions: No Action atorvastatin [Lipitor] 10 mg tablet 10 mg PO DAILY levothyroxine 137 MCG tablet 150 mcg PO DAILY losartan-hydrochlorothiazide 1 TAB tablet 1 tab PO DAILY sitagliptin phos-metformin 50-1,000 mg tablet 1 tab PO BIDCM Jardiance 10 mg Tablet 10 mg PO DAILY Primary Care Provider: Ethan Quesada Referrals: Corporate,[facility] [place] [Group of Physicians] - 3-5 Days Ethan Quesada MD [Primary Care Provider] - Print Language: Divehi Disposition Disposition: Home, Self Care
--- NOTE | 2024-01-14 20:24 | ED.RN ---
Notified medical laboratory technologist at [facility], Far[facility], of his decision for need to drug test. Testing required, notified corporate care.
--- NOTE | 2024-01-14 20:25 | RAD_ITS ---
STUDY: X-RAY - LEFT TIBIA AND FIBULA REASON FOR EXAM: Female, 58 years old. injury TECHNIQUE: 2 view(s) of the tibia and fibula were obtained. COMPARISON: None. FINDINGS: Normal visualized tibia. Normal visualized fibula. There is no demonstrated acute fracture. The soft tissue structures are unremarkable. RAD/Tibia & Fibula 2 Views IMPRESSION: Normal x-ray examination of the tibia and fibula. Electronically Signed: Kike Morales MD at 20:46 EDT ,
[2024-01-14 21:07] VITALS: PULSE 99; RESP 18; TEMP 36.2; O2SAT 99
[2024-01-14 21:08] VITALS: PULSE 99; RESP 18; TEMP 36.2; O2SAT 99
== END 2024-01-14 21:09 | disposition home or self-care (01) ==
PROVIDERS: Emergency Provider Emergency Medicine; PCP Family Medicine; Visit Provider Emergency Medicine
DX: S86.912A Strain of unspecified muscle(s) and tendon(s) at lower leg level, left leg, initial encounter (principal); E11.9 Type 2 diabetes mellitus without complications; W18.39XA Other fall on same level, initial encounter; Y99.0 Civilian activity done for income or pay; Y92.89 Other specified places as the place of occurrence of the external cause; I10 Essential (primary) hypertension; Z79.899 Other long term (current) drug therapy; Z79.84 Long term (current) use of oral hypoglycemic drugs; Z90.710 Acquired absence of both cervix and uterus
CPT/HCPCS: 73590; 99282

== ENCOUNTER → 2024-01-16 | Outpatient (CLI) | payer OTHER, SELFPAY ==
--- NOTE | 2024-01-16 13:05 | RAD_ITS ---
STUDY: X-RAY - LEFT SHOULDER REASON FOR EXAM: Female, 58 years old. Pain in left shoulder. TECHNIQUE: 4 views of the left shoulder. COMPARISON: None. FINDINGS: Normal glenohumeral articulation. There is mild acromioclavicular arthrosis. Normal acromion. Normal humeral head and visualized proximal humerus. The soft tissue structures are unremarkable. There is no demonstrated fracture. Normal visualized pulmonary apex. RAD/Shoulder min 2 Views IMPRESSION: Mild acromioclavicular arthrosis. No demonstrated fracture. Electronically Signed: Pranay Carey MD at 11:58 EDT ,
== END | disposition home or self-care (01) ==
PROVIDERS: PCP Family Medicine; Referring Provider Registered Nurse; Visit Provider Registered Nurse
DX: M25.512 Pain in left shoulder (principal); G89.29 Other chronic pain
CPT/HCPCS: 73030

== ENCOUNTER → 2024-04-30 | Outpatient (CLI) | payer OTHER, SELFPAY | END | disposition home or self-care (01) | PROVIDERS: PCP Family Medicine; Referring Provider Obstetrics & Gynecology; Visit Provider Obstetrics & Gynecology | DX: N89.8 Other specified noninflammatory disorders of vagina (principal) ==

== ENCOUNTER 2024-05-27 17:00 | Outpatient (RCR) | payer OTHER, SELFPAY ==
--- NOTE | 2024-04-15 18:36 | HP.PTREVAL ---
Re-Evaluation Intro: Dr. Jagdish Maldonado MD, It has been my pleasure to treat CHARLENE GARZA over the last 9 visits for Left Adhesive Capsulitis. Please see the progress note below for an update on the physical therapy plan of care! Subjective Subjective: Pt reports that the Dr is happy with her progress and put in for her to do more PT. She wants more PT to get better ROM. She Actually reached her bra the other day. Objective Objective/Function: AA/Flexion: 144 (+12 from eval) AA/ER: 50 degrees (+14 from eval) P/IR at 45: 85 degrees (+8 deg from last check) Active IR behind back: L2 (L5 last check) Plan Plan Plan: Continue with PROM and AAROM and stretching to end range. Balance/Gait/Functional tests Balance/Special Test Scores Quick DASH Score: 22.7250 Goals Goals Goal 1:: Patient will be I HEP and progression Goal Time Frame: 6-8 Weeks Goal Progress: Progressing Goal 2:: Patient will demo full AROM in all directions Goal Time Frame: 6-8 Weeks Goal 3:: Patient will maintain proper posture t/o tx session to demo increased scap s/s Goal Time Frame: 6-8 Weeks Goal Progress: Progressing Goal 4:: Patient will report 80% improvement Goal Time Frame: 6-8 Weeks Anticipated Interventions Anticipated Interventions Patient/Client Instruction: Educate patient on: Benefits of Fitness Program Therapeutic Exercise to Include: Strength training, Endurance training, Coordination, Agility training, Body mechanics, Postural training, Neuromotor development, Passive ROM, Active ROM, Dynamic Lumbar Stabilization and Scapular Strength/Stabilization For the Purpose of:: To improve muscle performance and motor function Manual Therapy Techniques to Include: Mobilization, Manipulation, Passive ROM and Soft tissue mobilization For the Purpose of:: To increase ROM TENS: Yes Cryotherapy (ice pack, ice massage): Yes Thermo therapy (hot pack): Yes Re-Evaluation Ending Re-evaluation ending: Please do not hesitate to contact me at [phone] by phone or if you have questions or concerns regarding this new plan of care! Sincerely, Cece Galvan, MPT
--- NOTE | 2024-05-27 17:56 | HP.PTDCSUM ---
Discharge Summary D/C summary: It has been my pleasure to treat CHARLENE GARZA referred by Dr. Jagdish Maldonado MD, with the diagnosis of Left Adhesive Capsulitis for a total of 14 visit(s). Discharge Date: 05/27/24 Please see the following information for a summary of their discharge status. Subjective Subjective: She is still sore when she reaching behind her. She is less painful overhead. Her pain is much better and now it is just stiff. Pain Left Shoulder: Pain Intensity (Out of 10): 1 Overall Improvement % Improvement: 75 Objective Objective/Function: L Shoulder AROM: L shoulder flexion 146 L shoulder IR T10 L ER 52 Lshoulder ABD 141 Goals Goal 1:: Patient will be I HEP and progression Goal Progress: Goal Met Goal 2:: Patient will demo full AROM in all directions Goal Progress: Progressing Goal 3:: Patient will maintain proper posture t/o tx session to demo increased scap s/s Goal Progress: Goal Met Goal 4:: Patient will report 80% improvement Goal Progress: Progressing Plan Plan: DC PT to HEP D/C Information Discharge Comments: DC PT to HEP d/c sentence: If there are questions or concerns regarding this patient's physical therapy, please feel free to call me at [phone]. Thank you for the referral of this patient. Sincerely, Cece Galvan, JACQUELINE Balance/Gait/Functional tests Balance/Special Test Scores Quick DASH Score: 13.6350 Improvement % Improvement: 75
== END 2024-05-27 19:00 | disposition home or self-care (01) ==
LOC: PT 17:00
PROVIDERS: PCP Family Medicine; Referring Provider Orthopaedic Surgery Sports Medicine; Visit Provider Orthopaedic Surgery Sports Medicine
DX: M75.02 Adhesive capsulitis of left shoulder (principal)
CPT/HCPCS: 97110; 97140; 97162; 97530

== ENCOUNTER → 2024-10-22 | Outpatient (CLI) | payer OTHER, SELFPAY | END | disposition home or self-care (01) | LOC: LABSPEC 15:19 | PROVIDERS: PCP Family Medicine; Referring Provider Nurse Practitioner Women's Health; Visit Provider Nurse Practitioner Women's Health | DX: R30.0 Dysuria (principal) | CPT/HCPCS: 87070; 87086; 87088; 87186; 87205 ==